=== PATIENT | male | born 1960 | race Caucasian/White ===

== ENCOUNTER 2018-01-10 12:01 | Emergency (ER) | payer SELFPAY ==
[2018-01-10 12:35] LABS: Absolute Lymphocytes (CBC) 2.5 K/uL (0.7-4.9); Absolute Monocytes 0.5 K/uL (0.1-1.3); Absolute Neutrophil 4.9 K/uL (1.8-8.0); Eosinophils % 2.4 % (0-4.4); Hematocrit 42.1 % (39.6-49.0); MCH 31.6 pg (27.0-35.0); MCV 96.6 fL (80-100); MPV 8.8 fL (7.6-11.3); Monocytes % 6.4 % (3.3-12.3); RBC Red Blood Cell Count 4.36 M/uL (4.33-5.43)
[2018-01-10] MEDS ORDERED: ONDANSETRON 4 MG/2 ML VIAL ONE (12:40)
[2018-01-10] MEDS ORDERED: MORPHINE 4 MG/ML SYR ONE ×2 (12:40→13:00)
[2018-01-10 12:43] LABS: Protime INR 1.07
[2018-01-10 12:45] LABS: Potassium 4.9 mEq/L (3.6-5.0)
[2018-01-10] MEDS ORDERED: LABETALOL 20 MG/4ML SYRINGE IV ONE (13:00)
--- NOTE | 2018-01-10 13:41 | RAD REPORT ---
EXAM DESCRIPTION: VAS - Lower Extremity Artery Uni Ltd - 01/10/2018 1:30 pm CLINICAL HISTORY: Right leg pain. COMPARISON: None. FINDINGS: The entire right lower extremity arterial system from DIGITAL RESEARCH ANALYST to DPA demonstrates monophasic f low with extremely low amplitude and very low velocities. This likely indicates a significant inflow stenosis/ lesion. CT angiogram would be recommended for followup assessment.
--- NOTE | 2018-01-10 14:08 | RAD REPORT ---
EXAM DESCRIPTION: CT - Angio Aorta For Dissection - 01/10/2018 1:42 pm CLINICAL HISTORY: Right leg pain and swelling. History of aortic endograft. COMPARISON: 12/14/2017 TECHNIQUE: CT angiography of the aorta was performed with volume rendering. All CT scans are performed using dose optimization technique as appropriate and may include automated exposure control or mA/KV adjustment according to patient size. FINDINGS: A left aortic arch is present with normal branching pattern of the great vessels.Thoracic aorta is normal in size without dissection or aneurysm. The celiac axis, SMA and renal arteries are widely patent. No evidence of pulmonary embolism. Abdominal aortic endograft has been placed since the prior CT. Endograft begins just distal to the re nal arteries. There is thrombosis noted involving the iliac portion of the endograft, with the right common iliac leg of the graft completely occluded. The left common iliac leg of the graft proximally shows near complete occlusion with a string sign present. The length of the thrombus at this location is 12 mm. Flow is seen in both external iliac arteries. The right-sided external iliac artery flow i s likely supplied via collateralization from the patent right internal iliac artery. There is mild at herosclerotic change seen in the both common femoral arteries with plaquing present bilaterally. The lungs are mildly emphysematous but clear.No aggressive solid organ finding. No bowel obstruction, free fluid or abscess.No pathologic enlarged lymphadenopathy identified. Lumbosacral degenerative changes are present. 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 Findings were discussed Dr. Hodge in the ER 2 p.m. 01/10/2018 by telephone.
--- NOTE | 2018-01-10 14:35 | EDPHYS ---
Physician Documentation [facility] Name: Jose Ramon Boston Jr Age: 57 yrs Sex: Male : 1960 Arrival Date: 01/10/2018 Time: 12:02 Bed 7 Private MD: ED Physician Bobo Hodge HPI: 01/10 14:30 This 57 yrs old Male presents to ER via EMS with complaints of Pulseless rn Extremity, Back Pain. 14:30 The patient presents with pain that is acute. The symptoms are located in the low back. rn Onset: The symptoms/episode began/occurred just prior to arrival. Modifying factors: The patient symptoms are alleviated by nothing, the patient symptoms are aggravated by any movement. The patient has not experienced similar symptoms in the past. Reports sudden onset RLE numbness and back pain, no trauma, states can't feel right leg and leg gave out. No abd pain. States compliant with effient. . Historical: - Allergies: 12:11 No Known Allergies; ph - PMHx: 12:11 Hypertension; aortic aneurysm; ph - PSHx: 12:11 aortic graft; ph - Immunization history:: Adult Immunizations unknown. - Social history:: Smoking status: Patient/guardian denies using tobacco. - Family history:: not pertinent. - Hospitalizations: : No recent hospitalization is reported. ROS: 14:30 Constitutional: Negative for fever, chills, and weight loss, Eyes: Negative for injury, rn pain, redness, and discharge, Neck: Negative for injury, pain, and swelling, Cardiovascular: Negative for chest pain, palpitations, and edema, Respiratory: Negative for shortness of breath, cough, wheezing, and pleuritic chest pain, Abdomen/GI: Negative for abdominal pain, nausea, vomiting, diarrhea, and constipation, Back: + pain MS/Extremity: Negative for injury and deformity, Skin: Negative for injury, rash, and discoloration, Neuro: + tingling of RLE Exam: 14:30 Constitutional: This is a well developed, well nourished patient who is awake, alert, rn appears uncomfortable Head/Face: Normocephalic, atraumatic. Eyes: Pupils equal round and reactive to light, extra-ocular motions intact. Lids and lashes normal. Conjunctiva and sclera are non-icteric and not injected. Cornea within normal limits. Periorbital areas with no swelling, redness, or edema. Cardiovascular: Regular rate and rhythm with a normal S1 and S2. No gallops, murmurs, or rubs. Normal PMI, no JVD. No pulse deficits. Respiratory: Lungs have equal breath sounds bilaterally, clear to auscultation and percussion. No rales, rhonchi or wheezes noted. No increased work of breathing, no retractions or nasal flaring. Abdomen/GI: Soft, non-tender, with normal bowel sounds. No distension or tympany. No guarding or rebound. No evidence of tenderness throughout. MS/ Extremity: No palpable pulses in either lower ext. Full, normal range of motion. Equal circumference. Neuro: Awake and alert, GCS 15, oriented to person, place, time, and situation. Cranial nerves II-XII grossly intact. Motor strength 5/5 in all extremities. Decreased sensation to soft touch RLE. Vital Signs: 12:06 BP 172 / 104; Pulse 73; Resp 22; Pulse Ox 100% on R/A; Weight 63.5 kg; Height 5 ft. 6 ph in. (167.64 cm); Pain 10/10; 12:45 BP 192 / 102; Pulse 68; Resp 16; Pulse Ox 99% on R/A; ph 13:28 BP 176 / 114; Pulse 66; Resp 16; Pulse Ox 98% on R/A; ph 14:19 BP 162 / 84; Pulse 80; Resp 16; Temp 97.8(TE); Pulse Ox 98% on R/A; ph 15:19 BP 151 / 83; Pulse 83; Resp 16; Temp 97.9; Pulse Ox 99% on R/A; ph 16:30 BP 158 / 78; Pulse 81; Resp 16; Temp 97.9; Pulse Ox 100% on R/A; ph 12:06 Body Mass Index 22.60 (63.50 kg, 167.64 cm) ph MDM: 12:02 Patient medically screened. rn 14:30 Differential diagnosis: aortic aneurysm, graft failure, occlusion of graft. Data rn reviewed: vital signs, nurses notes, lab test result(s), radiologic studies, CT scan, doppler, and as a result, I will admit patient. Counseling: I had a detailed discussion with the patient and/or guardian regarding: the historical points, exam findings, and any diagnostic results supporting the discharge/admit diagnosis, lab results, radiology results, the need to transfer to another facility, for higher level of care, [facility] does not immediately have the required specialist. ED course: Consulted with Dr. Mccullough at [facility], accepts patient for transfer to ICU on heparin drip for occlusion of aortic endograft. . 01/10 12:04 Order name: CBC with Diff; Complete Time: 12:51 rn 01/10 12:04 Order name: Basic Metabolic Panel; Complete Time: 12:51 rn 01/10 12:04 Order name: Protime (+inr); Complete Time: 12:51 rn 01/10 12:04 Order name: Ptt, Activated; Complete Time: 12:51 rn 01/10 12:04 Order name: US Lower Extremity (Artery Uni Ltd); Complete Time: 14:18 rn 01/10 12:04 Order name: CT Aorta for Dissection; Complete Time: 14:18 rn 01/10 12:04 Order name: IV Start; Complete Time: 12:22 rn Administered Medications: 12:26 Drug: Zofran 4 mg Route: IVP; Site: left antecubital; ph 13:30 Follow up: Response: No adverse reaction ph 12:27 Drug: morphine 4 mg Route: IVP; Site: left antecubital; ph 13:00 Follow up: Response: No adverse reaction ph 12:48 Drug: Labetalol 10 mg Route: IVP; Infused Over: 2 mins; Site: left antecubital; ph 13:30 Follow up: Response: No adverse reaction; Blood pressure is lowered ph 12:48 Drug: morphine 4 mg Route: IVP; Site: left antecubital; ph 16:35 Follow up: Response: No adverse reaction; Pain is decreased ph 14:45 Drug: Heparin (DVT/PE- Bolus per protocol) - HEParin 80 units/kg {Co-Signature: la1 ph (Tate Torres RN).} Route: IVP; Site: left antecubital; 16:35 Follow up: Response: No adverse reaction ph 15:09 Drug: Heparin (DVT/PE Drip) 18 units/kg/hr - (HEParin 12898 units, D5W 500 ml) ph {Co-Signature: la1 (Tate Torres RN).} Route: IV; Rate: 1 calculated rate; Site: left antecubital; 16:35 Follow up: IV Status: Infusion continued upon transfer ph Disposition: 01/10/18 14:35 Transfer ordered to [facility]. Diagnosis are Aortic graft occlusion, Paresthesia of skin. - Reason for transfer: Higher level of care. - Accepting physician is Dr. Mccullough. - Condition is Stable. - Problem is new. - Symptoms have improved. Signatures: Dispatcher [employer] EDBobo Aviles MD MD rn [facility] CenterYamileth cabrera RN RN Tate Torres RN RN la1 Tegan Mcarthur RN RN Tate Torres RN la1
--- NOTE | 2018-01-10 14:35 | ER ---
Nurse's Notes [facility] Name: Jose Ramon Boston Jr Age: 57 yrs Sex: Male : 1960 Arrival Date: 01/10/2018 Time: 12:02 Bed 7 Private MD: Diagnosis: Aortic graft occlusion;Paresthesia of skin Presentation: 01/10 12:03 Presenting complaint: EMS states: Pt fell at work after experiencing pain and numbness ph in R leg, unable to bear weight on R leg, had aortic graft sx on December 16, c/o pain in R femoral area and lower back. Transition of care: patient was not received from another setting of care. Onset of symptoms was January 10, 2018. Care prior to arrival: None. 12:03 Method Of Arrival: EMS: [facility] ph 12:03 Acuity: LUKE 2 ph Historical: - Allergies: 12:11 No Known Allergies; ph - PMHx: 12:11 Hypertension; aortic aneurysm; ph - PSHx: 12:11 aortic graft; ph - Immunization history:: Adult Immunizations unknown. - Social history:: Smoking status: Patient/guardian denies using tobacco. - Family history:: not pertinent. - Hospitalizations: : No recent hospitalization is reported. Screenin:12 Abuse screen: Denies threats or abuse. Denies injuries from another. Nutritional ph screening: No deficits noted. Tuberculosis screening: No symptoms or risk factors identified. Fall Risk Fall in past 12 months (25 points). No secondary diagnosis (0 pts). IV access (20 points). Ambulatory Aid- None/Bed Rest/Nurse Assist (0 pts). Gait- Weak (10 pts.). Mental Status- Oriented to own ability (0 pts). Total Caceres Fall Scale indicates High Risk Score (45 or more points). Fall prevention measures have been instituted. Side Rails Up X 2 Placed Close to Nursing Station Frequent Obs/Assessments Occuring As available patient and family educated on Fall Prevention Program and Strategies. Assessment: 12:00 Reassessment: ERP at bedside, pt cleared from backboard, board and c-collar removed, ph unable to locate pat pedal pulses w/ Doppler, pat feet pale in appearance and cool to touch. 12:14 General: Appears in no apparent distress. uncomfortable, Behavior is cooperative, ph appropriate for age, Denies fever, feeling ill. Pain: Complains of pain in medial aspect of right thigh and low back Pain currently is 10 out of 10 on a pain scale. Neuro: Level of Consciousness is awake, alert, obeys commands, Oriented to person, place, time, situation, Moves all extremities. Full function Facial symmetry appears normal, Intact Reports numbness weakness in right leg. Cardiovascular: Denies chest pain, shortness of breath, Capillary refill is > 3 seconds in bilateral toes Pulses are absent in right dorsalis pedis artery and left dorsalis pedis artery. Respiratory: Airway is patent Respiratory effort is even, unlabored, Respiratory pattern is regular, symmetrical. GI: No signs and/or symptoms were reported involving the gastrointestinal system. Derm: Skin is healthy with good turgor, Skin is clammy, Skin is pale. Musculoskeletal: Range of motion: intact in all extremities. 13:22 Reassessment: Patient appears in no apparent distress at this time. Patient and/or ph family updated on plan of care and expected duration. Pain level reassessed. Patient is alert, oriented x 3, equal unlabored respirations, skin warm/dry/pink. Pt resting quietly, lying on R side, states, " My back feels better as long as I lay like this. It seems like when I move to lay on back is when I get the numbness down my leg.". 14:18 Reassessment: Patient appears in no apparent distress at this time. Patient and/or ph family updated on plan of care and expected duration. Pain level reassessed. Patient is alert, oriented x 3, equal unlabored respirations, skin warm/dry/pink. Pt resting quietly, awaiting transfer. 15:53 Reassessment: Patient appears in no apparent distress at this time. Patient and/or ph family updated on plan of care and expected duration. Pain level reassessed. Patient is alert, oriented x 3, equal unlabored respirations, skin warm/dry/pink. Pt resting quietly at this time, report called to GARCIA Kilgore at [facility], awaiting EMS for transport. 16:35 Reassessment: Patient appears in no apparent distress at this time. Patient and/or ph family updated on plan of care and expected duration. Pain level reassessed. Patient is alert, oriented x 3, equal unlabored respirations, skin warm/dry/pink. [facility] at bedside, pt transferred to [facility]. Vital Signs: 12:06 BP 172 / 104; Pulse 73; Resp 22; Pulse Ox 100% on R/A; Weight 63.5 kg; Height 5 ft. 6 ph in. (167.64 cm); Pain 10/10; 12:45 BP 192 / 102; Pulse 68; Resp 16; Pulse Ox 99% on R/A; ph 13:28 BP 176 / 114; Pulse 66; Resp 16; Pulse Ox 98% on R/A; ph 14:19 BP 162 / 84; Pulse 80; Resp 16; Temp 97.8(TE); Pulse Ox 98% on R/A; ph 15:19 BP 151 / 83; Pulse 83; Resp 16; Temp 97.9; Pulse Ox 99% on R/A; ph 16:30 BP 158 / 78; Pulse 81; Resp 16; Temp 97.9; Pulse Ox 100% on R/A; ph 12:06 Body Mass Index 22.60 (63.50 kg, 167.64 cm) ph ED Course: 12:02 Patient arrived in ED. ph 12:02 Bobo Hodge MD is Attending Physician. rn 12:06 Triage completed. ph 12:07 Arm band placed on. ph 12:12 Patient has correct armband on for positive identification. Placed in gown. Bed in low ph position. Call light in reach. Side rails up X 1. case monitor on. Pulse ox on. NIBP on. Notified Nurse Practitioner and/or Physician Manager [employer] of. Warm blanket given. 12:22 No provider procedures requiring assistance completed. Inserted saline lock: 20 gauge la1 in left antecubital area, using aseptic technique. Blood collected. 12:39 Tegan Mcarthur, RN is Primary Nurse. ph 12:45 Ultrasound completed. Patient tolerated well. sg3 13:30 US Lower Extremity (Artery Uni Ltd) In Process Unspecified. EDMS 13:42 CT Aorta for Dissection In Process Unspecified. EDMS 16:35 Patient transferred, IV remains in place. ph Administered Medications: 12:26 Drug: Zofran 4 mg Route: IVP; Site: left antecubital; ph 13:30 Follow up: Response: No adverse reaction ph 12:27 Drug: morphine 4 mg Route: IVP; Site: left antecubital; ph 13:00 Follow up: Response: No adverse reaction ph 12:48 Drug: Labetalol 10 mg Route: IVP; Infused Over: 2 mins; Site: left antecubital; ph 13:30 Follow up: Response: No adverse reaction; Blood pressure is lowered ph 12:48 Drug: morphine 4 mg Route: IVP; Site: left antecubital; ph 16:35 Follow up: Response: No adverse reaction; Pain is decreased ph 14:45 Drug: Heparin (DVT/PE- Bolus per protocol) - HEParin 80 units/kg {Co-Signature: livia ph (Tate Torres RN).} Route: IVP; Site: left antecubital; 16:35 Follow up: Response: No adverse reaction ph 15:09 Drug: Heparin (DVT/PE Drip) 18 units/kg/hr - (HEParin 51829 units, D5W 500 ml) ph {Co-Signature: livia (Tate Torres RN).} Route: IV; Rate: 1 calculated rate; Site: left antecubital; 16:35 Follow up: IV Status: Infusion continued upon transfer ph Outcome: 14:35 ER care complete, transfer ordered by . rn 16:35 Patient left the ED. ss 16:35 Transferred by ground EMS to [facility], Transfer form ph completed. X-rays sent w/ patient. 16:35 critical 16:35 Instructed on the need for admit. Signatures: Dispatcher [employer] Bobo Alvarez MD MD rn Smirch, Shelby, RN RN ss Attema, Lee, RN RN la1 Hall, Patricia, RN RN Guillermo Cisnerosholy [facility] Tate bhakta
[2018-01-10] MEDS ORDERED: HEPARIN 5000 UNIT/ML 1 ML VIAL ONE (14:53)
[2018-01-10] MEDS ORDERED: HEPARIN/D5W 25,000 UNIT/500 ML BAG IV ONE (14:54)
--- NOTE | 2018-01-11 10:24 | EKG ---
Test Date: 2018-01-10 Test Time: 12:19:21 Watch Crystal Molder: MEASUREMENT RESULTS: Intervals: Rate: 68 MI: 130 QRSD: 80 QT: 408 QTc: 433 [place]: P: 42 MI: 130 QRS: 63 T: 67 INTERPRETIVE STATEMENTS: Normal sinus rhythm Possible Left atrial enlargement Borderline ECG Compared to ECG 12/14/2017 08:50:25 ST (T wave) deviation no longer present Electronically Signed On 01-11-18 10:23:34 CDT by Arash Stovall
== END 2018-01-10 16:35 | disposition short-term general hospital (02) ==
LOC: ER 12:01
DX: T82.857A Stenosis of other cardiac prosthetic devices, implants and grafts, initial encounter (principal); I10 Essential (primary) hypertension
CPT/HCPCS: 36415; 71275; 74175; 80048; 85025; 85610; 85730; 93005; 93926; 96365; 96375; 99285; J1644; J2405; Q9967

== ENCOUNTER 2018-03-09 16:22 | Emergency (ER) | payer SELFPAY ==
[2018-03-09 17:48] LABS: Absolute Lymphocytes (CBC) 0.8 K/uL (0.7-4.9); Absolute Monocytes 1.3 K/uL (0.1-1.3); Absolute Neutrophil 9.2 K/uL (1.8-8.0); Basophils % 0.2 % (0-1.3); Eosinophils % 0.1 % (0-4.4); Hematocrit 37.2 % (39.6-49.0); Lymphocytes % 7.1 % (15.3-44.8); MCH 32.1 pg (27.0-35.0); MCV 95.6 fL (80-100); MPV 9.1 fL (7.6-11.3); Monocytes % 11.2 % (3.3-12.3); RBC Red Blood Cell Count 3.89 M/uL (4.33-5.43)
[2018-03-09 17:59] LABS: Potassium 3.3 mEq/L (3.6-5.0)
[2018-03-09 18:05] LABS: Albumin 3.8 g/dL (3.2-5.5); Bilirubin Direct 0.2 mg/dL (0-0.2); Bilirubin Total 1.1 mg/dL (0.3-1.2); Protein, Total 7.9 g/dL (6.0-8.3)
[2018-03-09] MEDS ORDERED: CIPROFLOXACIN 400mg IV 400 MG/200 ML BAG IV ONE (18:08)
[2018-03-09] MEDS ORDERED: METRONIDAZOLE 500mg IVPB 500 MG/100 ML BAG IV ONE (18:08)
[2018-03-09] MEDS ORDERED: ONDANSETRON 4 MG/2 ML VIAL ONE (18:08)
[2018-03-09] MEDS ORDERED: FENTANYL CITR 100 MCG/2 ML ONE (18:08)
[2018-03-09] MEDS ORDERED: NA CHLORIDE 0.9% 1,000 ML ONE ×2 (18:09→22:00)
--- NOTE | 2018-03-09 18:29 | RAD REPORT ---
EXAM DESCRIPTION: RAD - Chest Single View - 03/09/2018 6:16 pm CLINICAL HISTORY: Chest pain. COMPARISON: 12/14/2017 FINDINGS: Portable technique limits examination quality. The lungs are grossly clear. The heart is normal in size. No displaced fractures. IMPRESSION: No acute intrathoracic process suspected.
--- NOTE | 2018-03-09 19:28 | ER ---
Nurse's Notes [facility] Name: Jose Ramon Boston Jr Age: 57 yrs Sex: Male : 1960 Arrival Date: 03/09/2018 Time: 16:25 Bed 27 Private MD: None, None Diagnosis: Abdominal tenderness-infected endograft;Fever, unspecified;Hypokalemia Presentation: 03/09 16:59 Presenting complaint: Patient states: burning lower abd pain that began last night. Pt aa5 states "It feels like when I had my aneurysm". Pt states "I've had chills and fever for about 3 days now". Transition of care: patient was not received from another setting of care. Onset of symptoms was March 2018. Risk Assessment: Do you want to hurt yourself or someone else? Patient reports no desire to harm self or others. Initial Sepsis Screen: Does the patient meet any 2 criteria? No. Patient's initial sepsis screen is negative. Does the patient have a suspected source of infection? No. Patient's initial sepsis screen is negative. Care prior to arrival: None. 16:59 Method Of Arrival: Ambulatory aa5 16:59 Acuity: LUKE 2 aa5 Historical: - Allergies: 17:00 No Known Allergies; aa5 - PMHx: 17:00 aortic aneurysm; Hypertension; aa5 - PSHx: 17:00 aortic graft; AAA repair; aa5 - Immunization history:: Adult Immunizations unknown. - Social history:: Smoking status: Patient uses tobacco products, smokes one-half pack cigarettes per day. - Ebola Screening: : No symptoms or risks identified at this time. - Family history:: not pertinent. Screenin:50 Abuse screen: Denies threats or abuse. Nutritional screening: No deficits noted. tl3 Tuberculosis screening: No symptoms or risk factors identified. Fall Risk None identified. Assessment: 17:50 General: Appears uncomfortable, slender, well groomed, well developed, well nourished, tl3 Behavior is calm, cooperative, appropriate for age. General: Reports chills for 12-24 hours, fever for 12-24 hours, reports lower abdominal pain, had recent AAA and repair in December 2017. Pain: Complains of pain in left lower quadrant and right lower quadrant Pain currently is 8 out of 10 on a pain scale. Neuro: Level of Consciousness is awake, alert, obeys commands, Oriented to person, place, time, situation, Appropriate for age. Cardiovascular: No deficits noted. Heart tones S1 S2 present Patient's skin is warm and dry. Respiratory: Airway is patent Respiratory effort is even, unlabored, Respiratory pattern is regular, symmetrical, Breath sounds are clear bilaterally. GI: Bowel sounds present X 4 quads. Abdomen is tender to palpation. : No deficits noted. No signs and/or symptoms were reported regarding the genitourinary system. EENT: No deficits noted. No signs and/or symptoms were reported regarding the EENT system. Derm: No deficits noted. No signs and/or symptoms reported regarding the dermatologic system. Musculoskeletal: No deficits noted. No signs and/or symptoms reported regarding the musculoskeletal system. 19:00 Reassessment: Patient appears in no apparent distress at this time. No changes from tl3 previously documented assessment. Patient and/or family updated on plan of care and expected duration. Pain level reassessed. Patient is alert, oriented x 3, equal unlabored respirations, skin warm/dry/pink. 20:59 Reassessment: Patient appears in no apparent distress at this time. No changes from tl3 previously documented assessment. Patient and/or family updated on plan of care and expected duration. Pain level reassessed. Patient is alert, oriented x 3, equal unlabored respirations, skin warm/dry/pink. 22:31 Reassessment: [facility] in [place] called and report given to GARCIA Sanchez, transfer tl3 paper completed and signed by pt. 22:33 Reassessment: Patient appears in no apparent distress at this time. No changes from tl3 previously documented assessment. Patient and/or family updated on plan of care and expected duration. Pain level reassessed. Patient is alert, oriented x 3, equal unlabored respirations, skin warm/dry/pink. 22:57 Reassessment: [facility] here for transport to [facility]. tl3 Vital Signs: 17:01 BP 140 / 107; Pulse 117; Resp 18 S; Temp 99.7(O); Pulse Ox 97% on R/A; Weight 68.04 kg aa5 (R); Height 5 ft. 6 in. (167.64 cm) (R); Pain 7/10; 17:50 BP 151 / 92; Pulse 93; Resp 18; Pulse Ox 95% ; tl3 19:00 BP 162 / 97; Pulse 87; Resp 18; Pulse Ox 98% ; tl3 20:59 BP 156 / 103; Pulse 84; Resp 16; Pulse Ox 97% ; tl3 22:33 BP 192 / 97; Pulse 87; Resp 18; Temp 100.4(O); Pulse Ox 97% ; tl3 17:01 Body Mass Index 24.21 (68.04 kg, 167.64 cm) aa5 ED Course: 16:25 Patient arrived in ED. mr 16:25 None, None is Private Physician. mr 17:00 Triage completed. aa5 17:00 Arm band placed on. aa5 17:21 Radiology exam delayed due to lab results not completed at this time. (BUN/Creatinine). cw1 17:23 Sloan Raphael MD is Attending Physician. [facility] 17:33 Sara Elizondo, GARCIA is Primary Nurse. tl3 17:50 Initial lab(s) drawn, by ne, sent to lab. First set of blood cultures drawn by me, tl3 Second set of blood cultures drawn by me. 17:50 No provider procedures requiring assistance completed. tl3 17:53 Patient has correct armband on for positive identification. Placed in gown. Bed in low tl3 position. Call light in reach. Side rails up X2. pickler helper on. Pulse ox on. NIBP on. 17:53 Inserted saline lock: 20 gauge in right wrist, using aseptic technique. Blood collected.tl3 17:57 Radiology exam delayed due to lab results not completed at this time. (BUN/Creatinine). cw1 18:03 EKG done, by ED staff, reviewed by Sloan Raphael MD. em1 18:17 XRAY Chest (1 view) In Process Unspecified. EDMS 18:[address] via stretcher. nj 18:53 CT completed. Patient tolerated procedure well. Patient moved back from CT. nj 18:53 CT Aorta for Dissection In Process Unspecified. EDMS 20:03 Ultrasound completed. Patient tolerated well. cy 20:04 US Extremity Venous W Compression Reji In Process Unspecified. EDMS 22:57 Patient transferred, IV remains in place. tl3 Administered Medications: 18:26 Drug: fentaNYL (PF) 25 mcg Route: IVP; Infused Over: 2 mins; Site: right wrist; tl3 20:56 Follow up: Response: No adverse reaction tl3 18:26 Drug: Zofran 4 mg Route: IVP; Infused Over: 2 mins; Site: right wrist; tl3 20:56 Follow up: Response: No adverse reaction tl3 18:27 Drug: Flagyl 500 mg Route: PO; tl3 20:56 Follow up: Response: No adverse reaction tl3 18:28 Drug: NS 0.9% 500 ml Route: IV; Rate: bolus; Site: right wrist; tl3 20:57 Follow up: IV Status: Completed infusion; IV Intake: 500ml tl3 18:28 Drug: Cipro 400 mg Volume: 200 ml; Route: IVPB; Infused Over: 60 mins; Site: right tl3 wrist; 20:56 Follow up: IV Status: Completed infusion; IV Intake: 200ml tl3 20:55 Drug: NS 0.9% 1000 ml Route: IV; Rate: 125 ml/hr; Site: right wrist; Delivery: Primary tl3 tubing; 21:57 Follow up: IV Status: Completed infusion; IV Intake: 1000ml tl3 22:14 Drug: NS 0.9% 1000 ml Route: IV; Rate: 125 ml/hr; Site: right forearm; tl3 22:56 Follow up: IV Status: Completed infusion; IV Intake: 250ml tl3 22:14 Drug: fentaNYL (PF) 25 mcg Route: IVP; Infused Over: 3 mins; Site: right forearm; tl3 23:00 Follow up: Response: No adverse reaction; Pain is decreased tl3 22:56 Drug: Tylenol 1000 mg Route: PO; tl3 22:56 Follow up: Response: No adverse reaction tl3 22:58 Follow up: Response: Medication administered at discharge. tl3 Intake: 20:56 IV: 200ml; Total: 200ml. tl3 20:57 IV: 500ml; Total: 700ml. tl3 21:57 IV: 1000ml; Total: 1700ml. tl3 22:56 IV: 250ml; Total: 1950ml. tl3 Outcome: 19:27 ER care complete, transfer ordered by MD. kulkarni 22:57 Transferred by ground EMS to [facility]. tl3 22:57 Condition: stable 22:57 Instructed on the need for transfer. 22:59 Patient left the ED. tl3 Signatures: Dispatcher [employer] EDMS Sloan Raphael MD MD cha Rivera, Maria mr Román, Erasmo em1 Sandy Roberts, RN RN aa5 Farrah, Yael cw1 Nader Norton Chheannith cy Lowrey, Tammy, GARCIA RN tl3
--- NOTE | 2018-03-09 19:28 | EDPHYS ---
Physician Documentation [facility] Name: Jose Ramon Boston Jr Age: 57 yrs Sex: Male : 1960 Arrival Date: 03/09/2018 Time: 16:25 Bed 27 Private MD: None, None ED Physician Sloan Raphael HPI: 03/09 17:56 This 57 yrs old Male presents to ER via Ambulatory with complaints of Fever, shad Abdominal Pain. 17:56 The patient reports fever, that was measured at 100 degrees Fahrenheit. Onset: The shad symptoms/episode began/occurred 2 day(s) ago. Modifying factors: there are no obvious modifying factors. Associated signs and symptoms: Pertinent positives: abdominal pain, chills, None. Severity of symptoms: At their worst the symptoms were mild. The patient has not experienced similar symptoms in the past. Historical: - Allergies: 17:00 No Known Allergies; aa5 - PMHx: 17:00 aortic aneurysm; Hypertension; aa5 - PSHx: 17:00 aortic graft; AAA repair; aa5 - Immunization history:: Adult Immunizations unknown. - Social history:: Smoking status: Patient uses tobacco products, smokes one-half pack cigarettes per day. - Ebola Screening: : No symptoms or risks identified at this time. - Family history:: not pertinent. ROS: 17:56 Constitutional: Negative for fever, chills, and weight loss, Eyes: Negative for injury, shad pain, redness, and discharge, ENT: Negative for injury, pain, and discharge, Neck: Negative for injury, pain, and swelling, Cardiovascular: Negative for chest pain, palpitations, and edema, Respiratory: Negative for shortness of breath, cough, wheezing, and pleuritic chest pain, Back: Negative for injury and pain, : Negative for injury, bleeding, discharge, and swelling, MS/Extremity: Negative for injury and deformity, Skin: Negative for injury, rash, and discoloration, Neuro: Negative for headache, weakness, numbness, tingling, and seizure, Psych: Negative for depression, anxiety, suicide ideation, homicidal ideation, and hallucinations, Allergy/Immunology: Negative for hives, rash, and allergies, Endocrine: Negative for neck swelling, polydipsia, polyuria, polyphagia, and marked weight changes, Hematologic/Lymphatic: Negative for swollen nodes, abnormal bleeding, and unusual bruising. 17:56 Abdomen/GI: Positive for abdominal pain, of the right lower quadrant and left lower quadrant. Exam: 17:56 Constitutional: This is a well developed, well nourished patient who is awake, alert, shad and in no acute distress. Head/Face: Normocephalic, atraumatic. Eyes: Pupils equal round and reactive to light, extra-ocular motions intact. Lids and lashes normal. Conjunctiva and sclera are non-icteric and not injected. Cornea within normal limits. Periorbital areas with no swelling, redness, or edema. ENT: Nares patent. No nasal discharge, no septal abnormalities noted. Tympanic membranes are normal and external auditory canals are clear. Oropharynx with no redness, swelling, or masses, exudates, or evidence of obstruction, uvula midline. Mucous membranes moist. Neck: Trachea midline, no thyromegaly or masses palpated, and no cervical lymphadenopathy. Supple, full range of motion without nuchal rigidity, or vertebral point tenderness. No Meningismus. Chest/axilla: Normal chest wall appearance and motion. Nontender with no deformity. No lesions are appreciated. Respiratory: Lungs have equal breath sounds bilaterally, clear to auscultation and percussion. No rales, rhonchi or wheezes noted. No increased work of breathing, no retractions or nasal flaring. Back: No spinal tenderness. No costovertebral tenderness. Full range of motion. Male : Normal genitalia with no discharge or lesions. Skin: Warm, dry with normal turgor. Normal color with no rashes, no lesions, and no evidence of cellulitis. MS/ Extremity: Pulses equal, no cyanosis. Neurovascular intact. Full, normal range of motion. Neuro: Awake and alert, GCS 15, oriented to person, place, time, and situation. Cranial nerves II-XII grossly intact. Motor strength 5/5 in all extremities. Sensory grossly intact. Cerebellar exam normal. Normal gait. Psych: Awake, alert, with orientation to person, place and time. Behavior, mood, and affect are within normal limits. 17:56 Cardiovascular: Rate: tachycardic, Rhythm: regular, Pulses: Pulses are 4+ in bilateral radial, brachial, femoral, popliteal, posterior tibial and and dorsalis pedis arteries.. Heart sounds: normal, Edema: is not appreciated, JVD: is not appreciated. Vital Signs: 17:01 BP 140 / 107; Pulse 117; Resp 18 S; Temp 99.7(O); Pulse Ox 97% on R/A; Weight 68.04 kg aa5 (R); Height 5 ft. 6 in. (167.64 cm) (R); Pain 7/10; 17:50 BP 151 / 92; Pulse 93; Resp 18; Pulse Ox 95% ; tl3 19:00 BP 162 / 97; Pulse 87; Resp 18; Pulse Ox 98% ; tl3 20:59 BP 156 / 103; Pulse 84; Resp 16; Pulse Ox 97% ; tl3 22:33 BP 192 / 97; Pulse 87; Resp 18; Temp 100.4(O); Pulse Ox 97% ; tl3 17:01 Body Mass Index 24.21 (68.04 kg, 167.64 cm) aa5 MDM: 17:23 Patient medically screened. [facility] 17:59 Data reviewed: vital signs, nurses notes, lab test result(s), EKG, radiologic studies, [facility] CT scan, plain films. 03/09 17:12 Order name: Amylase, Serum; Complete Time: 18:20 [facility] 03/09 17:12 Order name: Basic Metabolic Panel; Complete Time: 18:20 [facility] 03/09 17:12 Order name: CBC with Diff; Complete Time: 18:20 [facility] 03/09 17:12 Order name: Creatinine for Radiology; Complete Time: 18:20 [facility] 03/09 17:12 Order name: Hepatic Function; Complete Time: 18:20 [facility] 03/09 17:12 Order name: Lipase; Complete Time: 18:20 [facility] 03/09 17:12 Order name: Blood Culture Adult (2) [facility] 03/09 17:12 Order name: Procalcitonin; Complete Time: 19:13 [facility] 03/09 17:12 Order name: CT Aorta for Dissection [facility] 03/09 17:55 Order name: XRAY Chest (1 view); Complete Time: 19:13 [facility] 03/09 17:55 Order name: EKG; Complete Time: 17:56 [facility] 03/09 19:15 Order name: US Extremity Venous W Compression Reji [facility] 03/09 17:12 Order name: Labs collected and sent; Complete Time: 17:52 [facility] 03/09 17:12 Order name: Urine Dipstick-Ancillary (obtain specimen); Complete Time: 20:57 snw 03/09 17:55 Order name: Cardiac monitoring; Complete Time: 18:28 [facility] 03/09 17:55 Order name: EKG - Nurse/Tech; Complete Time: 18:03 [facility] 03/09 17:55 Order name: IV Saline Lock; Complete Time: 18:28 [facility] 03/09 17:55 Order name: O2 Per Protocol; Complete Time: 18:28 [facility] 03/09 17:55 Order name: O2 Sat Monitoring; Complete Time: 18:28 [facility] Administered Medications: 18:26 Drug: fentaNYL (PF) 25 mcg Route: IVP; Infused Over: 2 mins; Site: right wrist; tl3 20:56 Follow up: Response: No adverse reaction tl3 18:26 Drug: Zofran 4 mg Route: IVP; Infused Over: 2 mins; Site: right wrist; tl3 20:56 Follow up: Response: No adverse reaction tl3 18:27 Drug: Flagyl 500 mg Route: PO; tl3 20:56 Follow up: Response: No adverse reaction tl3 18:28 Drug: NS 0.9% 500 ml Route: IV; Rate: bolus; Site: right wrist; tl3 20:57 Follow up: IV Status: Completed infusion; IV Intake: 500ml tl3 18:28 Drug: Cipro 400 mg Volume: 200 ml; Route: IVPB; Infused Over: 60 mins; Site: right tl3 wrist; 20:56 Follow up: IV Status: Completed infusion; IV Intake: 200ml tl3 20:55 Drug: NS 0.9% 1000 ml Route: IV; Rate: 125 ml/hr; Site: right wrist; Delivery: Primary tl3 tubing; 21:57 Follow up: IV Status: Completed infusion; IV Intake: 1000ml tl3 22:14 Drug: NS 0.9% 1000 ml Route: IV; Rate: 125 ml/hr; Site: right forearm; tl3 22:56 Follow up: IV Status: Completed infusion; IV Intake: 250ml tl3 22:14 Drug: fentaNYL (PF) 25 mcg Route: IVP; Infused Over: 3 mins; Site: right forearm; tl3 23:00 Follow up: Response: No adverse reaction; Pain is decreased tl3 22:56 Drug: Tylenol 1000 mg Route: PO; tl3 22:56 Follow up: Response: No adverse reaction tl3 22:58 Follow up: Response: Medication administered at discharge. tl3 Disposition: 03/09/18 19:27 Transfer ordered to [facility]. Diagnosis are Abdominal tenderness - infected endograft, Fever, unspecified, Hypokalemia. - Reason for transfer: Higher level of care. - Accepting physician is to [facility]. - Condition is Fair. - Problem is new. - Symptoms are unchanged. Signatures: Dispatcher [employer] [facility] Sloan Raphael MD MD cha Therrien, Shelly, BOTTOM PRESSER-C BOTTOM PRESSER-Csnw Sandy Roberts, RN RN aa5 Sara Elizondo, RN RN tl3 Corrections: (The following items were deleted from the chart) 18:47 17:56 Abdomen Pelvis W Con+CT.RAD.BRZ ordered. [facility] 22:59 19:27 03/09/2018 19:27 Transfer ordered to [facility]. Diagnosis is Abdominal tl3 tenderness - infected endograft; Fever, unspecified; Hypokalemia. Reason for transfer: Higher level of care. Accepting physician is to [facility]. Condition is Fair. Problem is new. Symptoms are unchanged. shad
--- NOTE | 2018-03-09 19:52 | RAD REPORT ---
EXAM DESCRIPTION: CT - Angio Aorta For Dissection - 03/09/2018 6:53 pm CLINICAL HISTORY: Chest pain radiating to the back. COMPARISON: 01/10/2018, 12/14/2017 TECHNIQUE: CT angiography of the aorta was performed with volume rendering. All CT scans are performed using dose optimization technique as appropriate and may include automated exposure control or mA/KV adjustment according to patient size. FINDINGS: A left aortic arch is present with normal branching pattern of the great vessels.No acute aortic finding is seen such as aneurysm, penetrating ulcer or dissection. The celiac axis, SMA, DIMPLE and renal arteries are widely patent. No evidence of pulmonary embolism. 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 The graft appears patent. Since the prior study, it ap pears stents have been placed in both common iliac arteries. Moderate inflammatory changes present barbosa rrounding the aorta and common iliac arteries noted at the level of the graft material. Several promi nent lymph nodes are also present in this region. The lungs are clear. The liver demonstrates no focal mass or biliary dilatation.The spleen, pancreas, adrenal glands and k idneys are within normal limits for arterial phase imaging. No bowel obstruction, free fluid or abscess. No fracture or worrisome bone lesion seen. IMPRESSION: Inflammatory changes and multiple small lymph nodes are seen surrounding the infrarenal abdominal aorta and both common iliac arteries which is suspicious for graft infection.No graft throm bosis is identified. Findings were discussed with Dr. Raphael at 7 p.m. 03/09/2018 by telephone.
--- NOTE | 2018-03-09 20:08 | RAD REPORT ---
EXAM DESCRIPTION: VAS - Extrem Venous W Compress Reji - 03/09/2018 8:04 pm CLINICAL HISTORY: Bilateral leg edema and swelling. COMPARISON: None. TECHNIQUE: Real-time sonographic interrogation of the left and right lower extremity deep venous sys tems was performed. FINDINGS: Normal compressibility, flow augmentation, phasic flow and spontaneous flow is identified in both the left and right lower extremity deep venous systems. IMPRESSION: No sonographic evidence of left or right lower extremity deep venous thrombosis.
[2018-03-09] MEDS ORDERED: ACETAMINOPHEN 500 MG TAB ONE (22:39)
--- NOTE | 2018-03-10 13:45 | EKG ---
Test Date: 2018-03-09 Test Time: 17:59:38 Cleaner Touch Up Worker: JULISSA MEASUREMENT RESULTS: Intervals: Rate: 93 NE: 124 QRSD: 86 QT: 362 QTc: 450 Thompson: P: 34 NE: 124 QRS: 36 T: -3 INTERPRETIVE STATEMENTS: Normal sinus rhythm Possible Left atrial enlargement Left ventricular hypertrophy with repolarization abnormality Abnormal ECG Compared to ECG 01/10/2018 12:19:21 Left ventricular hypertrophy now present Early repolarization now present Electronically Signed On 03-10-18 13:41:53 CDT by Uziel Rene
== END 2018-03-09 22:59 | disposition short-term general hospital (02) ==
LOC: ER 16:22
DX: T82.7XXA Infection and inflammatory reaction due to other cardiac and vascular devices, implants and grafts, initial encounter (principal); E87.6 Hypokalemia; R10.819 Abdominal tenderness, unspecified site; I10 Essential (primary) hypertension; F17.210 Nicotine dependence, cigarettes, uncomplicated
CPT/HCPCS: 36415; 71045; 71275; 74175; 80048; 80076; 82150; 83690; 84145; 85025; 87040; 93005; 93970; 99285; J0744; J2405; J3010; J7030; Q9967

== ENCOUNTER 2019-03-07 13:38 | Inpatient (IN) | payer OTHER, SELFPAY ==
--- OUTSIDE RECORDS SUMMARY | 2019-03-07 13:40 | XMS REPORT ---
:1960 [facility] [address] [place] [address] [address] [place] [address] Care Team Providers Name Role Phone Unavailable Unavailable Unavailable Problems This patient has no known problems. Allergies, Adverse Reactions, Alerts This patient has no known allergies or adverse reactions. Medications This patient has no known medications.
[2019-03-07 14:55] LABS: Absolute Lymphocytes (CBC) 1.7 K/uL (0.7-4.9); Absolute Monocytes 0.7 K/uL (0.1-1.3); Absolute Neutrophil 6.8 K/uL (1.8-8.0); Basophils % 0.5 % (0-1.3); Eosinophils % 0.7 % (0-4.4); Hematocrit 44.4 % (39.6-49.0); Lymphocytes % 18.7 % (15.3-44.8); MPV 9.2 fL (7.6-11.3); RBC Red Blood Cell Count 4.68 M/uL (4.33-5.43)
[2019-03-07 15:05] LABS: ALT/SGPT 19 U/L (12-78); AST/SGOT 17 U/L (15-37); Albumin 3.8 g/dL (3.4-5.0); Alkaline Phosphatase 107 U/L (45-117); BUN Blood Urea Nitrogen 17 mg/dL (7-18); Bicarbonate 23 mmol/L (21-32); Bilirubin Direct < 0.1 mg/dL (0-0.2); Bilirubin Total 0.6 mg/dL (0.2-1.0); Glucose Level 107 mg/dL (74-106); Lipase 71 U/L (73-393); Potassium 3.9 mmol/L (3.5-5.1); Protein, Total 8.3 g/dL (6.4-8.2); Sodium Level 140 mmol/L (136-145)
--- NOTE | 2019-03-07 15:53 | RAD REPORT ---
EXAM DESCRIPTION: CT - Abdomen Pelvis W Contrast - 03/07/2019 3:11 pm CLINICAL HISTORY: Abdominal pain COMPARISON: March 2018 TECHNIQUE: Computed axial tomography of the abdomen pelvis was obtained. 100 cc Isovue-300 was admin istered intravenously. Oral contrast was not requested which limits evaluation of bowel. All CT scans are performed using dose optimization technique as appropriate and may include automated exposure control or mA/KV adjustment according to patient size. FINDINGS: Since the prior examination an arterial graft has been placed within the subcutaneous fat of the left lateral chest and abdomen. The graft courses within the subcutaneous fat of the pelvis an teriorly supplying the right and left common femoral arteries. 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 Left common iliac, left external and internal iliac arteries are occluded. Flow is visualized within the right and left internal iliac arteries. The liver, spleen, pancreas, adrenal and kidneys appear unremarkable. A ventral hernia contains dilated loop of small bowel within the mid abdomen. The bowel entering and exiting the hernia is narrowed. Fluid surrounds the herniated small bowel. An additional ventral hernia to the right of midline lies several centimeters inferior within the low er abdomen/upper pelvis containing nondilated bowel. Left inguinal hernia contains fat There is no evidence of diverticulitis IMPRESSION: Ventral hernia within the mid abdomen containing dilated small bowel compatible with an obstruction. Fluid surrounding the bowel may indicate strangulation. Placement of an arterial graft as described above. 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
--- NOTE | 2019-03-07 16:10 | ER ---
Nurse's Notes [facility] Name: Jose Ramon Boston Jr Age: 58 yrs Sex: Male : 1960 Arrival Date: 03/07/2019 Time: 13:40 Bed 13 Private MD: Diagnosis: Other and unspecified ventral hernia with obstruction, without gangrene Presentation: 03/07 13:49 Presenting complaint: Patient states: "MY HERNIA'S GONNA BLOW UP". Transition of care: bp patient was not received from another setting of care. Onset of symptoms is unknown. Risk Assessment: Do you want to hurt yourself or someone else? Patient reports no desire to harm self or others. Initial Sepsis Screen: Does the patient meet any 2 criteria? No. Patient's initial sepsis screen is negative. Does the patient have a suspected source of infection? No. Patient's initial sepsis screen is negative. Care prior to arrival: None. 13:49 Method Of Arrival: Ambulatory bp 13:49 Acuity: LUKE 3 bp Historical: - Allergies: 13:50 No Known Allergies; bp - Home Meds: 13:50 None [Active]; bp - PMHx: 13:50 aortic aneurysm; Hypertension; bp - PSHx: 13:50 AAA REPAIR; bp - Immunization history:: Adult Immunizations up to date. - Social history:: Smoking status: unknown. - Ebola Screening: : No symptoms or risks identified at this time. Screenin:10 Abuse screen: Denies threats or abuse. Nutritional screening: No deficits noted. rb1 Tuberculosis screening: No symptoms or risk factors identified. Fall Risk None identified. Assessment: 14:10 General: Appears uncomfortable, Behavior is calm, cooperative. Pain: Complains of pain rb1 in abdomen Pain currently is 10 out of 10 on a pain scale. Neuro: Level of Consciousness is awake, alert, obeys commands, Oriented to person, place, time, situation. Cardiovascular: Capillary refill < 3 seconds is brisk in bilateral fingers. Respiratory: Airway is patent Respiratory effort is even, unlabored, Respiratory pattern is regular, symmetrical. GI: No signs and/or symptoms were reported involving the gastrointestinal system. : No signs and/or symptoms were reported regarding the genitourinary system. Derm: Skin is pink, warm \\T\\ dry. 15:10 Reassessment: Pt is in CT. rb1 16:14 Reassessment: Dr. Shi is at bedside. rb1 16:20 Reassessment: Dr. Shi ordered to hold the Flagyl and Cipro until he speaks with Dr. avani France. 16:20 Reassessment: Patient appears in no apparent distress at this time. Patient and/or rb1 family updated on plan of care and expected duration. Pain level reassessed. Patient is alert, oriented x 3, equal unlabored respirations, skin warm/dry/pink. 16:32 Reassessment: Spoke to Dr. Shi via telephone and received order to obtain Blood rb1 Cultures (2) and then continue with the Cipro and Flagyl as ordered. 100% telephone read back. 17:20 Reassessment: Patient appears in no apparent distress at this time. No changes from rb1 previously documented assessment. Pt. is watching TV. 17:30 Reassessment: Tried to call report but GARCIA Sánchez was in another pt. room and needs to rb1 call me back. 17:55 Reassessment: Report given to GARCIA Sánchez. Information from the SBAR was given. All rb1 questions asked and answered. 18:03 Reassessment: Patient appears in no apparent distress at this time. Patient and/or rb1 family updated on plan of care and expected duration. Pain level reassessed. Patient is alert, oriented x 3, equal unlabored respirations, skin warm/dry/pink. Patient denies pain at this time. Vital Signs: 13:50 BP 146 / 98; Pulse 86; Resp 16; Temp 98.1; Pulse Ox 97% ; Weight 75.75 kg; Height 5 ft. bp 6 in. (167.64 cm); 14:52 BP 125 / 93; Pulse 78; Resp 18; Temp 98.1(O); Pulse Ox 95% on R/A; mh5 16:11 BP 166 / 97; Pulse 64; Resp 16; Temp 98.4(O); Pulse Ox 96% on R/A; mh5 17:21 BP 144 / 94; Pulse 76; Resp 18; Temp 98.6(O); Pulse Ox 96% on R/A; mh5 18:00 BP 146 / 92; Pulse 71; Resp 17; Temp 98.5(O); Pulse Ox 97% on R/A; Pain 0/10; rb1 13:50 Body Mass Index 26.95 (75.75 kg, 167.64 cm) bp ED Course: 13:40 Patient arrived in ED. tw3 13:50 Triage completed. bp 13:50 Arm band placed on. bp 14:05 Sloan Raphael MD is Attending Physician. shad 14:05 SamirIvanna laureano, [employer] is PHCP. nh 14:06 SamirGustavoi, [employer] is PHCP. nh 14:25 Patient has correct armband on for positive identification. Placed in gown. Bed in low mh5 position. Call light in reach. Side rails up X 1. Warm blanket given. Pulse ox on. NIBP on. 14:31 Radiology exam delayed due to lab results not completed at this time. (BUN/Creatinine). mw3 14:42 Mariana Hooks, RN is Primary Nurse. rb1 14:47 Initial lab(s) drawn, by nd, sent to lab. Inserted saline lock: 20 gauge in right mh5 antecubital area, using aseptic technique. Blood collected. 14:47 Basic Metabolic Panel Sent. mh5 14:47 CBC with Diff Sent. mh5 14:47 Creatinine for Radiology Sent. mh5 14:48 Hepatic Function Sent. mh5 14:48 Lipase Sent. mh5 15:11 CT completed. restarted iv access to lt AC, 22GA. Patient moved back from CT. bq 15:12 CT Abd/Pelvis - W/Contrast In Process Unspecified. EDMS 15:12 Inserted saline lock: 22 gauge in left antecubital area, using aseptic technique. rb1 ,using aseptic technique. Inserted by Heather in Radiology. 15:12 IV discontinued, intact, bleeding controlled, No redness/swelling at site. Pressure rb1 dressing applied, IV 20 G RA was discontinued by Heather in Radiology due to pt. complaining of pain when she flushed the IV. 16:09 Dylan Shi DO is Hospitalizing Provider. nh 17:15 Second set of blood cultures drawn by me. 5 17:20 Blood Culture Adult (2) Sent. rb1 18:08 No provider procedures requiring assistance completed. Patient admitted, IV remains in rb1 place. Administered Medications: 17:20 Drug: Flagyl 500 mg Volume: 100 ml; Route: IVPB; Rate: 200 ml/hr; Infused Over: 30 rb1 mins; Site: left antecubital; 18:06 Follow up: Response: No adverse reaction; IV Status: Completed infusion rb1 18:05 Drug: Cipro 400 mg {Note: Medication sent to the floor with pt..} Volume: 200 ml; rb1 Route: IVPB; Infused Over: 60 mins; Site: left antecubital; 18:10 Follow up: medication went to the floor with the pt rb1 Intake: Outcome: 16:10 Decision to Hospitalize by Provider. wa 18:08 Admitted to Med/surg accompanied by tech, via wheelchair, room 211, with chart, Report rb1 called to GARCIA Sánchez 18:08 Condition: stable 18:08 Instructed on the need for admit. 18:10 Patient left the ED. rb1 Signatures: Dispatcher [employer] EDMS Sloan Raphael MD MD cha Cronk, Niki, [employer] wa Heather Liu Rebecca, RN RN rb1 Idania France 5 Devyn, Soraya 3 Chris Rocha RN RN Nadia Fisher mw3
--- NOTE | 2019-03-07 16:11 | EDPHYS ---
Physician Documentation [facility] Name: Jose Ramon Boston Jr Age: 58 yrs Sex: Male : 1960 Arrival Date: 03/07/2019 Time: 13:40 Bed 13 Private MD: ED Physician Sloan Raphael HPI: 03/07 16:03 This 58 yrs old Male presents to ER via Ambulatory with complaints of Hernia. nh 16:03 Onset: The symptoms/episode began/occurred 2 day(s) ago. Associated signs and symptoms: oh Pertinent positives: abdominal pain, vomiting. Modifying factors: The patient symptoms are alleviated by nothing, the patient symptoms are aggravated by drinking, eating food. The patient has not experienced similar symptoms in the past. The patient has not recently seen a physician. Historical: - Allergies: 13:50 No Known Allergies; bp - Home Meds: 13:50 None [Active]; bp - PMHx: 13:50 aortic aneurysm; Hypertension; bp - PSHx: 13:50 AAA REPAIR; bp - Immunization history:: Adult Immunizations up to date. - Social history:: Smoking status: unknown. - Ebola Screening: : No symptoms or risks identified at this time. ROS: 16:03 Constitutional: Negative for fever, chills, and weight loss, Eyes: Negative for injury, nh pain, redness, and discharge, ENT: Negative for injury, pain, and discharge, Neck: Negative for injury, pain, and swelling, Cardiovascular: Negative for chest pain, palpitations, and edema, Respiratory: Negative for shortness of breath, cough, wheezing, and pleuritic chest pain, Back: Negative for injury and pain, : Negative for injury, bleeding, discharge, and swelling, MS/Extremity: Negative for injury and deformity, Skin: Negative for injury, rash, and discoloration, Neuro: Negative for headache, weakness, numbness, tingling, and seizure, Psych: Negative for depression, anxiety, suicide ideation, homicidal ideation, and hallucinations, Allergy/Immunology: Negative for hives, rash, and allergies, Endocrine: Negative for neck swelling, polydipsia, polyuria, polyphagia, and marked weight changes, Hematologic/Lymphatic: Negative for swollen nodes, abnormal bleeding, and unusual bruising. 16:03 Abdomen/GI: Positive for abdominal pain, nausea and vomiting. Exam: 16:03 Constitutional: This is a well developed, well nourished patient who is awake, alert, nh and in no acute distress. Head/Face: Normocephalic, atraumatic. Eyes: Pupils equal round and reactive to light, extra-ocular motions intact. Lids and lashes normal. Conjunctiva and sclera are non-icteric and not injected. Cornea within normal limits. Periorbital areas with no swelling, redness, or edema. ENT: Nares patent. No nasal discharge, no septal abnormalities noted. Tympanic membranes are normal and external auditory canals are clear. Oropharynx with no redness, swelling, or masses, exudates, or evidence of obstruction, uvula midline. Mucous membranes moist. Neck: Trachea midline, no thyromegaly or masses palpated, and no cervical lymphadenopathy. Supple, full range of motion without nuchal rigidity, or vertebral point tenderness. No Meningismus. Chest/axilla: Normal chest wall appearance and motion. Nontender with no deformity. No lesions are appreciated. Cardiovascular: Regular rate and rhythm with a normal S1 and S2. No gallops, murmurs, or rubs. Normal PMI, no JVD. No pulse deficits. Respiratory: Lungs have equal breath sounds bilaterally, clear to auscultation and percussion. No rales, rhonchi or wheezes noted. No increased work of breathing, no retractions or nasal flaring. Back: No spinal tenderness. No costovertebral tenderness. Full range of motion. Skin: Warm, dry with normal turgor. Normal color with no rashes, no lesions, and no evidence of cellulitis. MS/ Extremity: Pulses equal, no cyanosis. Neurovascular intact. Full, normal range of motion. Neuro: Awake and alert, GCS 15, oriented to person, place, time, and situation. Cranial nerves II-XII grossly intact. Motor strength 5/5 in all extremities. Sensory grossly intact. Cerebellar exam normal. Normal gait. Psych: Awake, alert, with orientation to person, place and time. Behavior, mood, and affect are within normal limits. 16:03 Abdomen/GI: Inspection: abdomen appears normal, Bowel sounds: normal, Palpation: mass, that is tender, of the right upper quadrant and left upper quadrant, Hernia: noted in the paraumbilical area, incarceration, that is moderate, tenderness. Vital Signs: 13:50 BP 146 / 98; Pulse 86; Resp 16; Temp 98.1; Pulse Ox 97% ; Weight 75.75 kg; Height 5 ft. bp 6 in. (167.64 cm); 14:52 BP 125 / 93; Pulse 78; Resp 18; Temp 98.1(O); Pulse Ox 95% on R/A; mh5 16:11 BP 166 / 97; Pulse 64; Resp 16; Temp 98.4(O); Pulse Ox 96% on R/A; mh5 17:21 BP 144 / 94; Pulse 76; Resp 18; Temp 98.6(O); Pulse Ox 96% on R/A; mh5 18:00 BP 146 / 92; Pulse 71; Resp 17; Temp 98.5(O); Pulse Ox 97% on R/A; Pain 0/10; rb1 13:50 Body Mass Index 26.95 (75.75 kg, 167.64 cm) bp Procedures: 16:03 Reduction:. oh MDM: 14:05 Patient medically screened. [facility] 16:03 Data reviewed: vital signs, nurses notes, lab test result(s), radiologic studies, I nh have discussed the patient's presentation/case with the attending Emergency Department Physician; and as a result, I will admit patient. Counseling: I had a detailed discussion with the patient and/or guardian regarding: the historical points, exam findings, and any diagnostic results supporting the discharge/admit diagnosis, lab results, radiology results, the need for further work-up and treatment in the hospital. 03/07 14:10 Order name: Basic Metabolic Panel; Complete Time: 15:06 oh 03/07 14:10 Order name: CBC with Diff; Complete Time: 15:06 oh 03/07 14:10 Order name: Creatinine for Radiology; Complete Time: 15:06 oh 03/07 14:10 Order name: Hepatic Function; Complete Time: 15:06 oh 03/07 14:10 Order name: Lipase; Complete Time: 15:06 oh 03/07 16:34 Order name: Blood Culture Adult (2) rb1 03/07 14:10 Order name: IV Saline Lock; Complete Time: 14:48 oh 03/07 14:10 Order name: Labs collected and sent; Complete Time: 14:48 oh 03/07 14:10 Order name: CT Abd/Pelvis - W/Contrast; Complete Time: 15:57 oh Administered Medications: 17:20 Drug: Flagyl 500 mg Volume: 100 ml; Route: IVPB; Rate: 200 ml/hr; Infused Over: 30 rb1 mins; Site: left antecubital; 18:06 Follow up: Response: No adverse reaction; IV Status: Completed infusion rb1 18:05 Drug: Cipro 400 mg {Note: Medication sent to the floor with pt..} Volume: 200 ml; rb1 Route: IVPB; Infused Over: 60 mins; Site: left antecubital; 18:10 Follow up: medication went to the floor with the pt rb1 Disposition: 03/08 07:32 Co-signature as Attending Physician, Sloan Raphael MD I agree with the assessment and shad plan of care. Disposition: 03/07/19 16:10 Hospitalization ordered by Dylan Shi for Observation. Preliminary diagnosis is Other and unspecified ventral hernia with obstruction, without gangrene. - Bed requested for Telemetry/MedSurg (observation). - Status is Observation. rb1 - Condition is Stable. - Problem is new. - Symptoms are unchanged. UTI on Admission? No Signatures: Dispatcher [employer] EDMS Kriss Garcia Corey, MD MD [facility] Ivanna Dawson, SOFTWARE SUPPORT ANALYST SOFTWARE SUPPORT ANALYSTHarry S. [facility] Mariana Hooks, RN RN [facility] Chris Rocha RN RN bp Corrections: (The following items were deleted from the chart) 03/07 17:03 16:10 Hospitalization Ordered by Dylan Shi DO for Observation. Preliminary bd diagnosis is Other and unspecified ventral hernia with obstruction, without gangrene. Bed requested for Telemetry/MedSurg (observation). Status is Observation. Condition is Stable. Problem is new. Symptoms are unchanged. UTI on Admission? No. oh 18:10 17:03 03/07/2019 16:10 Hospitalization Ordered by Dylan Shi DO for Observation. rb1 Preliminary diagnosis is Other and unspecified ventral hernia with obstruction, without gangrene. Bed requested for Telemetry/MedSurg (observation). Status is Observation. Condition is Stable. Problem is new. Symptoms are unchanged. UTI on Admission? No. bd
[2019-03-07] MEDS ORDERED: CIPROFLOXACIN 400mg IV 400 MG/200 ML BAG IV ONE (16:32)
[2019-03-07] MEDS ORDERED: METRONIDAZOLE 500mg IVPB 500 MG/100 ML BAG IV ONE (16:32)
--- NOTE | 2019-03-07 16:42 | P.HP ---
Certification for Inpatient Patient admitted to: Inpatient With expected LOS: >2 Midnights Patient will require the following post-hospital care: None Practitioner: I am a practitioner with admitting privileges, knowledge of patient current condition, hospital course, and medical plan of care. Services: Services provided to patient in accordance with Admission requirements found in Title 42 Section 412.3 of the Code of Federal Regulations Patient History Date of Service: 03/07/19 Primary Care Provider: [facility] Reason for admission: Abdominal pain, nausea and vomited History of Present Illness: 58-year-old male presented to emergency room with increasing abdominal pain, nausea and vomiting. Patient has history of aortic aneurysm repair. He has a large incision vertically to the abdomen. Patient reports hernia to this area. This has been getting bigger over time. He 1st noted it months ago. Patient reported increasing abdominal pain to the hernia just above the umbilicus on Friday. Patient continued to have increasing pain. Patient reported nausea, vomiting. He was not able to tolerate any food. He did have a bowel movement last night. Some chills noted. Slight distention noted to the hernia site. Patient came to the ER for further evaluation. In the ER patient evaluated. White count 9.4, hemoglobin 14.6. Sodium 140, potassium 3.9, BUN of 17, creatinine 1.86 with a GFR 37. Glucose 107. CT scan revealed ventral hernia within the mid abdomen containing dilated small bowel. This was compatible with incarcerated hernia. ER physician was able to reduce the hernia with relief. Patient was admitted for further evaluation and treatment. When I saw the patient the ER, pain to the abdomen improved. ER has spoken to surgery he will evaluate patient. Allergies No Known Allergies Allergy (Uncoded 12/14/17 11:16) Unknown Home medications list reviewed: Yes - Past Medical/Surgical History Diabetic: No -: Hypertension -: Hyperlipidemia -: History aortic aneurysm repair, status post occlusion, postop bypass -: Aortic aneurysm repair, status post occlusion, postop bypass Psychosocial/ Personal History: Patient is . He has 1 child. He does not work. - Family History Family History: Reviewed- Non-Contributory - Social History Smoking Status: Former smoker Alcohol use: No CD- Drugs: No Caffeine use: Yes Place of Residence: Home Review of Systems General: Weakness, As per HPI Eyes: Unremarkable ENT: Unremarkable Respiratory: Unremarkable Cardiovascular: Unremarkable Gastrointestinal: Nausea, Vomiting, Abdominal Pain, Constipation, As per HPI Genitourinary: Unremarkable Musculoskeletal: Unremarkable Integumentary: Unremarkable Neurological: Unremarkable Lymphatics: Unremarkable Physical Examination - Physical Exam General: Alert, In no apparent distress, Oriented x3, Cooperative HEENT: Atraumatic, Normocephalic, PERRLA, Mucous membr. moist/pink Neck: Supple, No Thyromegaly Respiratory: Clear to auscultation bilaterally, Normal air movement Cardiovascular: Normal pulses, Regular rate/rhythm Gastrointestinal: Soft and benign, Non-distended, Other (Mid line mid abdominal hernia. Easily reduced. Defect noted just above her umbilicus. Pain significantly improved.) Integumentary: No erythema, No warmth, No cyanosis Neurological: Normal speech, Normal strength at 5/5 x4 extr, Normal tone, Normal affect - Studies Laboratory Data (last 24 hrs) 03/07/19 14:40: Creatinine 1.86 H 03/07/19 14:40: WBC 9.4, Hgb 14.6, Hct 44.4, Plt Count 222 03/07/19 14:40: Sodium 140, Potassium 3.9, BUN 17, Creatinine 1.89 H, Glucose 107 H, Total Bilirubin 0.6, AST 17, ALT 19, Alkaline Phosphatase 107, Lipase 71 L Assessment and Plan - Plan Impression: Abdominal pain, nausea and vomiting secondary to incarcerated ventral hernia status post hernia reduction Acute renal injury Hypertension Hyperlipidemia History of aortic aneurysm repair with occlusion and eventual arterial bypass Plan: Abdominal pain, nausea and vomiting secondary to incarcerated ventral hernia status post hernia reduction: Patient will be admitted for further evaluation and treatment. ER physician reduced incarcerated ventral hernia with success. Pain significantly improved. Case discussed with surgery who will evaluate patient later. Patient will remain NPO. Will start IV fluids. Will provide medication for pain bed rest. No straining, pulling, pushing or lifting. Patient is to be monitored closely. Patient will be re-evaluated in the morning. If improved surgery will consider initiation of diet. If worsening patient may require surgical intervention. Will monitor closely. I will turn the service over to Dr. Reyez tomorrow. I will go over the plan of care with her. Acute renal injury: Likely from nausea and vomiting. Will start IV fluids. Will monitor and replace electrolytes appropriately. Hypertension: Patient takes metoprolol at home. Will provide IV medication as needed Hyperlipidemia: Will hold his statin medication. History of aortic aneurysm repair with occlusion and eventual arterial bypass: Overall stable. Will provide SCD for DVT prophylaxis. Discharge Plan: Home Plan to discharge in: 48 Hours - Advance Directives Does patient have a Living Will: No Does patient have a Durable POA for Healthcare: No - Code Status/Comfort Care Code Status Assessed: Yes (Patient full code.) Time Spent Managing Pts Care (In Minutes): 55
[2019-03-07] MEDS ORDERED: ACETAMINOPHEN 650MG/RECT SUPP PR PRN (18:10)
[2019-03-07] MEDS ORDERED: ACETAMINOPHEN 500 MG TAB PO PRN (18:10)
[2019-03-07] MEDS ORDERED: MORPHINE 2 MG/ML SYR IV PRN (18:10)
[2019-03-07] MEDS ORDERED: ONDANSETRON 4 MG/2 ML VIAL IV PRN (18:10)
[2019-03-07] MEDS ORDERED: METOPROLOL TARTRATE 5 MG/5 ML INJ IV PRN (18:10)
[2019-03-07] MEDS: ENOXAPARIN 30 MG/0.3 ML SQ SCH (18:34)
[2019-03-07] MEDS: D5 0.9 NS 1,000 ML IV SCH (18:37)
[2019-03-07] MEDS: FAMOTIDINE 20 MG/2 ML VIAL IV SCH (20:11)
[2019-03-07] MEDS: CIPROFLOXACIN 400mg IV 400 MG/200 ML BAG IV SCH (20:14)
[2019-03-08] MEDS: METRONIDAZOLE 500mg IVPB 500 MG/100 ML BAG IV SCH ×3 (00:54→16:32)
[2019-03-08] MEDS: D5 0.9 NS 1,000 ML IV SCH ×2 (04:39→16:33)
[2019-03-08 06:33] LABS: Absolute Lymphocytes (CBC) 2.2 K/uL (0.7-4.9); Absolute Monocytes 0.6 K/uL (0.1-1.3); Absolute Neutrophil 2.9 K/uL (1.8-8.0); Basophils % 0.6 % (0-1.3); Eosinophils % 2.8 % (0-4.4); Lymphocytes % 37.8 % (15.3-44.8); MPV 9.2 fL (7.6-11.3); Monocytes % 9.9 % (3.3-12.3)
[2019-03-08 06:48] LABS: Magnesium 2.3 mg/dL (1.8-2.4); Potassium 3.9 mmol/L (3.5-5.1)
--- NOTE | 2019-03-08 09:24 | CON ---
Date of Consultation: 03/07/2019 History Of Present Illness: Mr. Bsoton is a 58-year-old patient, who comes today to the ER with a ventral hernia that was incarcerated, and reduced by the ER physician. The patient is admitted for o bservation and now a surgical consult was obtained. The story goes; he is saying that about a year a go, he had an aortic aneurysm that got clotted. Then, after that, he received a graft for aortobifem oral bypass, that was complicated. He went back to work and within weeks, he noticed that his legs w ere getting numb suddenly and he was diagnosed with a clotted graft that required declotting. About 2 weeks after, he said that he felt the same pain once again and they discovered that the patient has some major infection in the abdomen where the graft was that required not only drainage but also rem oval of aortobifemoral bypass. When that had to be done, emergently they had to do as per the patien t, axillobifemoral bypass. Not too long after that, he developed this hernia in the mid abdomen. He has been dealing with that for the last several months. It has been giving him more trouble for the last month until today, he could not push it back, so he came to the ER. Right now, he feels better . The hernia is reduced. He has no abdominal pain. He was admitted obviously for observation. Past Medical History: Aortic aneurysm, hypertension, multiple clots in the graft, intraabdominal inf ections, midline ventral aneurysm. Past Surgical History: AAA repair, followed by removal of the aortobifemoral bypass graft and an stella rgent axillobifemoral extracorporeal. The graft can be felt from the axilla into the left flank maribel g near the anterior left flank and going into the left femoral region. Social History: He does not smoke. He does not drink alcohol. Family History: Noncontributory. Review of Systems: Ten points, otherwise unremarkable. Physical Examination: General: The patient is awake and alert. No more nausea. No abdominal pain at this moment. Chest: Clear. Abdomen: Soft and depressible. The patient has a ventral hernia and it is reducible, nontender at t his time. The patient has incisions over the inguinal region coming from the axilla going to left ch est, going into the left flank to the graft, and inserting apparently in the left femoral region, and from there another graft going into the right femoral region. Extremities: Good capillary refill. Laboratory Data: Blood work shows WBC count of 9.4, hemoglobin of 14.6, chloride is 108. CAT scan o f the abdomen and pelvis, this was after reduction by the ER physician, shows intestines on the herni a with possible obstruction. Assessment And Plan: A 58-year-old patient, who came to the ER with an incarcerated ventral hernia, reduced by the ER physician. The patient feels better, right now asymptomatic was admitte d for observation for obvious reasons were there for about an hour. Still, this hernia sh ould be fixed. This is going to happen once again. The problem is that he is having trouble with __ clotting in his graft before with multiple emergent surgeries, even in the area where we are going to do the surgery at this moment, and I believe this should be fixed in a tertiary center, whe re they can deal with a clot of this axillobifemoral bypass. Plus, when you fix the hernia, you may encounter certain situations that may require more than one surgical intervention, may goran n need a vascular surgery that we find something in that area that is involved with the hernia and ex tent to the area of the axillobifemoral. We do not like to expose that graft, and also, there is a c tico for that to clot again as happened before. For that reason, I believe in this patient, if he f eels better and is completely asymptomatic, you have a chance to obviously discharge the patient home and he must go to the clinic [place], where his doctors are. Another alternative, we just transfer him to that institution to his surgeons in that area. We will discuss that with the __ doctor again in the morning. ROBERT/JUANPABLO Voice ID: [id number] Report ID: [id number]
[2019-03-08] MEDS: FAMOTIDINE 20 MG/2 ML VIAL IV SCH (09:43)
[2019-03-08] MEDS: ENOXAPARIN 30 MG/0.3 ML SQ SCH (09:43)
[2019-03-08] MEDS: CIPROFLOXACIN 400mg IV 400 MG/200 ML BAG IV SCH (09:45)
[2019-03-08 15:56] LABS: Urine Appearance CLEAR; Urine Bilirubin NEGATIVE (NEG); Urine Blood 3+ (NEG); Urine Color DK YELLOW; Urine Glucose NEGATIVE (NEG); Urine Protein 1+ (NEG); Urine Specific Gravity >=1.030 (1.005-1.030); Urine Urobilinogen 0.2 mg/dL (0.2-1.0)
[2019-03-08 15:57] LABS: Urine Microscopic Reflex ORDER UMIC
[2019-03-08 16:05] LABS: Urine Bacteria <20 /HPF (NONE SEEN); Urine Culture Reflex Order NOT NEEDED
[2019-03-08 16:06] LABS: Urine Mucus 1+ /HPF (NONE SEEN)
--- NOTE | 2019-03-08 17:23 | P.DS ---
Admission Date: 03/07/19 Discharge Date: 03/08/19 Primary Care Provider: [facility] Disposition: ROUTINE DISCHARGE Discharge Condition: GOOD Reason for Admission: Abdominal pain, nausea and vomited Consultations: General surgeon - Problems (1) Incarcerated hernia Current Visit: Yes Status: Acute (2) Abdominal pain Current Visit: Yes Status: Acute Brief History of Present Illness: 58-year-old male presented to emergency room with increasing abdominal pain, nausea and vomiting. Patient has history of aortic aneurysm repair. He has a large incision vertically to the abdomen. Patient reports hernia to this area. This has been getting bigger over time. He 1st noted it months ago. Patient reported increasing abdominal pain to the hernia just above the umbilicus on Friday. Patient continued to have increasing pain. Patient reported nausea, vomiting. He was not able to tolerate any food. He did have a bowel movement last night. Some chills noted. Slight distention noted to the hernia site. Patient came to the ER for further evaluation. In the ER patient evaluated. White count 9.4, hemoglobin 14.6. Sodium 140, potassium 3.9, BUN of 17, creatinine 1.86 with a GFR 37. Glucose 107. CT scan revealed ventral hernia within the mid abdomen containing dilated small bowel. This was compatible with incarcerated hernia. ER physician was able to reduce the hernia with relief. Patient was admitted for further evaluation and treatment. When I saw the patient the ER, pain to the abdomen improved. ER has spoken to surgery he will evaluate patient. Hospital Course: Over the course of the hospital stay patient remained stable Patient was initially admitted to the hospital for abdominal pain abdominal CT was consistent with incarcerated ventral hernia. Patient had reduction in the ER with general surgeon. Patient had marked improvement in his abdominal pain at that time as well. At that time patient's general surgeon who recommended the patient will follow up with [facility] where he had initially had his abdominal surgery and several repairs after that. Patient was given a clear liquid diet once he was able to tolerate diet well without having nausea or vomiting then discharged home under stable condition was asked to follow up with [facility] general surgery. Patient demonstrate understanding and thus was discharged home under stable condition. Patient was asked to continue with clear liquid diet till he gets followed up by general surgery. Patient was also asked to come back to the ER if acute worsening of his symptoms are unable to get a follow up appointment at [facility] Vital Signs/Physical Exam: Temp Pulse Resp BP Pulse Ox 97.5 F 51 16 145/73 H 96 03/08/19 12:00 03/08/19 12:00 03/08/19 12:00 03/08/19 12:00 03/08/19 12:00 General: Alert, In no apparent distress HEENT: Atraumatic, PERRLA, EOMI Neck: Supple, JVD not distended Respiratory: Clear to auscultation bilaterally, Normal air movement Cardiovascular: Regular rate/rhythm, Normal S1 S2 Gastrointestinal: Normal bowel sounds, No tenderness, Other (Ventral hernia noted) Musculoskeletal: No tenderness Integumentary: No rashes Neurological: Normal speech, Normal tone, Normal affect Lymphatics: No axilla or inguinal lymphadenopathy Laboratory Data at Discharge: WBC 5.9 K/uL (4.3-10.9) D 03/08/19 05:57 Hgb 12.2 g/dL (13.6-17.9) L 03/08/19 05:57 Hct 37.0 % (39.6-49.0) L D 03/08/19 05:57 Plt Count 189 K/uL (152-406) 03/08/19 05:57 Sodium 140 mmol/L (136-145) 03/08/19 05:57 Potassium 3.9 mmol/L (3.5-5.1) 03/08/19 05:57 BUN 16 mg/dL (7-18) 03/08/19 05:57 Creatinine 1.53 mg/dL (0.55-1.3) H 03/08/19 05:57 Glucose 111 mg/dL (74-106) H 03/08/19 05:57 Magnesium 2.3 mg/dL (1.8-2.4) 03/08/19 05:57 Total Bilirubin 0.6 mg/dL (0.2-1.0) 03/07/19 14:40 AST 17 U/L (15-37) 03/07/19 14:40 ALT 19 U/L (12-78) 03/07/19 14:40 Alkaline Phosphatase 107 U/L (45-117) 03/07/19 14:40 Lipase 71 U/L (73-393) L 03/07/19 14:40 Home Medications: Atorvastatin Calcium [Lipitor] 40 mg PO BEDTIME 03/07/19 Metoprolol Tartrate 50 mg PO BID 03/07/19 Patient Discharge Instructions: Please f.u with [facility] general Surgery regarding your hernia Diet: Full or Clear Diet Activity: Ad miguel ángel
== END 2019-03-08 18:35 | disposition home or self-care (01) | DRG 395 ==
LOC: ER 13:38 → ERHOLD 16:28 → 2ND 17:58
PROVIDERS: ADMIT Family Medicine; ATTEND Family Medicine
DX: K43.6 Other and unspecified ventral hernia with obstruction, without gangrene (principal); I10 Essential (primary) hypertension
CPT/HCPCS: 36415; 74177; 80048; 80076; 81003; 81015; 83690; 83735; 85025; 87040; 96365; 96375; 99285; J0744; J1650; Q9967

== ENCOUNTER 2019-07-16 01:36 | Inpatient (IN) | payer OTHER ==
[2019-07-16] MEDS ORDERED: MORPHINE 4 MG/ML SYR ONE (02:10)
[2019-07-16] MEDS ORDERED: MORPHINE 2 MG/ML SYR ONE (02:10)
[2019-07-16] MEDS ORDERED: ONDANSETRON 4 MG/2 ML VIAL ONE ×2 (02:10→10:54)
[2019-07-16] MEDS ORDERED: FENTANYL CITR 100 MCG/2 ML ONE ×4 (02:43→14:13)
[2019-07-16] MEDS ORDERED: NA CHLORIDE 0.9% 1,000 ML ONE (03:05)
[2019-07-16 03:25] LABS: Absolute Lymphocytes (CBC) 1.1 K/uL (0.7-4.9); Basophils % 0.9 % (0-1.3); Hematocrit 41.4 % (39.6-49.0); Lymphocytes % 11.7 % (15.3-44.8); MPV 10.2 fL (7.6-11.3); RBC Red Blood Cell Count 4.28 M/uL (4.33-5.43)
[2019-07-16 03:37] LABS: Protime INR 1.04
[2019-07-16 03:47] LABS: ALT/SGPT 26 U/L (12-78); AST/SGOT 17 U/L (15-37); Albumin 4.2 g/dL (3.4-5.0); Alkaline Phosphatase 104 U/L (45-117); BUN Blood Urea Nitrogen 17 mg/dL (7-18); Bicarbonate 28 mmol/L (21-32); Bilirubin Direct < 0.1 mg/dL (0-0.2); Bilirubin Total 0.3 mg/dL (0.2-1.0); Glucose Level 96 mg/dL (74-106); Potassium 3.8 mmol/L (3.5-5.1); Protein, Total 7.8 g/dL (6.4-8.2); Sodium Level 143 mmol/L (136-145)
[2019-07-16] MEDS ORDERED: METRONIDAZOLE 500mg IVPB 500 MG/100 ML BAG IV ONE (04:49)
[2019-07-16] MEDS ORDERED: CEFTRIAXONE/SWI 1gm 1 GM/10 ML SYR ONE (04:49)
--- NOTE | 2019-07-16 04:51 | ER ---
Nurse's Notes [facility] Name: Jose Ramon Boston Jr Age: 58 yrs Sex: Male : 1960 Arrival Date: 07/16/2019 Time: 01:37 Bed 19 Private MD: Diagnosis: Incarcerated Ventral Hernia;Small bowel obstruction Presentation: 07/16 01:45 Presenting complaint: Patient states: At 7 pm My hernia started hurting, my social jb4 worker told me to put my binder back on. I kept it on for 3 hours then took it off because it was hurting. the hernia knotted up and would not go back in. 01:45 Transition of care: patient was not received from another setting of care. Onset of jb4 symptoms was July 16, 2019. Risk Assessment: Do you want to hurt yourself or someone else? Patient reports no desire to harm self or others. Initial Sepsis Screen: Does the patient meet any 2 criteria? No. Patient's initial sepsis screen is negative. Does the patient have a suspected source of infection? Yes: Acute abdominal pain. Care prior to arrival: None. 01:45 Method Of Arrival: Wheelchair jb4 01:45 Acuity: LUKE 2 jb4 Historical: - Allergies: 01:54 No Known Allergies; jb4 - Home Meds: 01:54 Metoprolol Tartrate Oral [Active]; Cholesterol medication [Active]; jb4 - PMHx: 01:54 aortic aneurysm; Hypertension; High Cholesterol; Hernia; jb4 - PSHx: 01:54 AAA REPAIR; jb4 - Immunization history:: Adult Immunizations not up to date. - Social history:: Smoking status: Patient uses tobacco products, denies chronic smoking, but will smoke occasionally, Patient uses alcohol, occasionally. - Ebola Screening: : No symptoms or risks identified at this time. - Family history:: not pertinent. - Hospitalizations: : No recent hospitalization is reported. Screenin:58 Abuse screen: Denies threats or abuse. Denies injuries from another. Nutritional wh screening: No deficits noted. Tuberculosis screening: No symptoms or risk factors identified. Fall Risk None identified. Assessment: 01:59 General: Appears in no apparent distress. uncomfortable, Behavior is calm, cooperative, wh appropriate for age. Pain: Complains of pain in abdomen Pain does not radiate. Pain currently is 10 out of 10 on a pain scale. Quality of pain is described as aching, Pain began 4 hours ago. Neuro: Level of Consciousness is awake, alert, obeys commands, Oriented to person, place, time, situation, Appropriate for age. Cardiovascular: Heart tones S1 S2. Respiratory: Airway is patent Respiratory effort is even, unlabored, Respiratory pattern is regular, symmetrical. GI: Abdomen is non-distended, Bowel sounds present X 4 quads. Mass noted in mid abdomen Reports hernia from prior abdominal surgery. : No signs and/or symptoms were reported regarding the genitourinary system. EENT: No signs and/or symptoms were reported regarding the EENT system. Derm: Skin is intact, is healthy with good turgor, Skin is pink, warm \T\ dry. normal. Musculoskeletal: Circulation, motion, and sensation intact. 03:00 Reassessment: Patient appears in no apparent distress at this time. No changes from previously documented assessment. Patient and/or family updated on plan of care and expected duration. Pain level reassessed. Patient is alert, oriented x 3, equal unlabored respirations, skin warm/dry/pink. Dr Hodge at bedside doing manual manipulation of the hernia. 04:20 Reassessment: Patient appears in no apparent distress at this time. No changes from previously documented assessment. Patient and/or family updated on plan of care and expected duration. Pain level reassessed. Patient is alert, oriented x 3, equal unlabored respirations, skin warm/dry/pink. Patient states feeling better. 05:36 Reassessment: Patient appears in no apparent distress at this time. No changes from previously documented assessment. Patient and/or family updated on plan of care and expected duration. Pain level reassessed. Patient is alert, oriented x 3, equal unlabored respirations, skin warm/dry/pink. Vital Signs: 01:45 BP 181 / 109; Pulse 70; Resp 18; Temp 97.8(O); Pulse Ox 98% on R/A; Weight 71.67 kg jb4 (R); Height 5 ft. 6 in. (167.64 cm); Pain 10/10; 03:01 BP 177 / 99; Pulse 69; Resp 18; Pulse Ox 100% ; wh 04:15 BP 147 / 96; Pulse 63; Resp 18; Pulse Ox 95% on R/A; wh 05:43 BP 153 / 94; Pulse 70; Resp 18; Pulse Ox 98% on R/A; wh 01:45 Body Mass Index 25.50 (71.67 kg, 167.64 cm) jb4 ED Course: 01:37 Patient arrived in ED. ds1 01:45 Arm band placed on right wrist. jb4 01:51 Bobo Hodge MD is Attending Physician. rn 01:52 Triage completed. jb4 01:54 Malou Vines is Primary Nurse. 01:54 Inserted saline lock: 20 gauge in right antecubital area, using aseptic technique. wh Blood collected. 01:58 Patient has correct armband on for positive identification. Placed in gown. Bed in low wh position. Call light in reach. Side rails up X 1. Pulse ox on. NIBP on. 03:37 Radiology exam delayed due to lab results not completed at this time. (BUN/Creatinine). jg6 04:20 CT Abd/Pelvis - IV Contrast Only In Process Unspecified. EDMS 04:50 Timur Wilson MD is Hospitalizing Provider. rn 05:36 NGT: inserted 18 Fr. via right nare. verified placement of air over stomach, verified wh return of gastric contents, to intermittent suction. Returned gastric contents. flushed with 20 ml NS Patient tolerated well. with 450 ml gastric output. 06:24 No provider procedures requiring assistance completed. Patient admitted, IV remains in wh place. Administered Medications: 02:17 Drug: Zofran 4 mg Route: IVP; Site: right antecubital; 06:25 Follow up: Response: No adverse reaction; Nausea is decreased 02:17 Drug: morphine 6 mg {Note: RASS 0.} Route: IVP; Site: right antecubital; 06:25 Follow up: Response: No adverse reaction; Pain is decreased; RASS: Alert and Calm (0) 03:03 Drug: fentaNYL (PF) 50 mcg {Note: RASS 0.} Route: IVP; Site: right antecubital; 06:26 Follow up: Response: No adverse reaction; Pain is decreased; RASS: Alert and Calm (0) 03:03 Drug: fentaNYL (PF) 25 mcg Route: IVP; Site: right antecubital; 05:52 Follow up: Response: No adverse reaction; Pain is decreased; RASS: Alert and Calm (0) 03:07 Drug: NS 0.9% 1000 ml Route: IV; Rate: 1000 ml; Site: right antecubital; 05:52 Follow up: Response: No adverse reaction; IV Status: Completed infusion 04:41 Drug: Rocephin - (cefTRIAXone) 1 grams Route: IVPB; Infused Over: 30 mins; Site: right rr5 antecubital; 05:52 Follow up: Response: No adverse reaction; IV Status: Completed infusion 05:39 Drug: Flagyl 500 mg Volume: 100 ml; Route: IVPB; Rate: 200 ml/hr; Infused Over: 30 wh mins; Site: right antecubital; 05:53 Follow up: Response: No adverse reaction; IV Status: Completed infusion Outcome: 04:51 Decision to Hospitalize by Provider. rn 06:24 Admitted to Tele accompanied by nurse, via wheelchair, room 425, with chart, Report called to Jessica Henson RN 06:24 Condition: good 06:24 Instructed on the need for admit. 06:25 Patient left the ED. Signatures: Dispatcher [employer] [facility] Francheska Escalera ds1 Bobo Hodge MD MD rn Bryson, James, RN RN jb4 Malou Vines Mel Obregon6 Deepak Mejia RN RN rr5 Corrections: (The following items were deleted from the chart) 01:56 01:45 Acuity: LUKE 3 jb4 jb4 07:11 05:36 NGT: inserted 18 Fr. via right nare. verified placement of air over stomach, verified return of gastric contents, to intermittent suction. Returned gastric contents. flushed with 20 ml NS Patient tolerated well.
--- NOTE | 2019-07-16 04:52 | EDPHYS ---
Physician Documentation [facility] Name: Jose Ramon Boston Jr Age: 58 yrs Sex: Male : 1960 Arrival Date: 07/16/2019 Time: 01:37 Bed 19 Private MD: ED Physician Bobo Hodge HPI: 07/16 03:52 This 58 yrs old Male presents to ER via Wheelchair with complaints of Hernia rn Pain. 03:52 The patient presents with abdominal pain. Onset: The symptoms/episode began/occurred rn yesterday. The symptoms do not radiate. Associated signs and symptoms: Pertinent positives: nausea and vomiting, Pertinent negatives: blood in stools, diarrhea, dysuria, fever, hematuria, shortness of breath, testicular pain, vomiting blood. The symptoms are described as crampy, intermittent. Modifying factors: The symptoms are alleviated by nothing, the symptoms are aggravated by pressure, touching the area. Severity of pain: At its worst the pain was moderate in the emergency department the pain is unchanged. The patient has experienced similar episodes in the past. The patient has not recently seen a physician. Reports abdominal hernia, has had over a year, reports last night around 1930, felt pain to ventral hernia, and having trouble pushing it back in. + nausea and vomiting x 2. Having bowel movements. States has happened to him before, was admitted and hernia reduced by Dr. France, no surgery recommended at the time. TOld to f/u with specialist in [place]. . Historical: - Allergies: 01:54 No Known Allergies; jb4 - Home Meds: 01:54 Metoprolol Tartrate Oral [Active]; Cholesterol medication [Active]; jb4 - PMHx: 01:54 aortic aneurysm; Hypertension; High Cholesterol; Hernia; jb4 - PSHx: 01:54 AAA REPAIR; jb4 - Immunization history:: Adult Immunizations not up to date. - Social history:: Smoking status: Patient uses tobacco products, denies chronic smoking, but will smoke occasionally, Patient uses alcohol, occasionally. - Ebola Screening: : No symptoms or risks identified at this time. - Family history:: not pertinent. - Hospitalizations: : No recent hospitalization is reported. ROS: 03:52 Constitutional: Negative for fever, chills, and weight loss, Cardiovascular: Negative rn for chest pain, palpitations, and edema, Respiratory: Negative for shortness of breath, cough, wheezing, and pleuritic chest pain, Abdomen/GI: + abd pain and hernia pain Back: Negative for injury and pain, : Negative for injury, bleeding, discharge, and swelling, MS/Extremity: Negative for injury and deformity, Neuro: Negative for headache, weakness, numbness, tingling, and seizure. Exam: 03:52 Constitutional: This is a well developed, well nourished patient who is awake, alert, rn and in no acute distress. Head/Face: Normocephalic, atraumatic. ENT: MMM Cardiovascular: Regular rate and rhythm. No pulse deficits. Respiratory: Speaking full sentences. No increased work of breathing, no retractions or nasal flaring. Abdomen/GI: Soft, + ventral hernia, unable to reduce after 2 rounds of narcotic pain meds. Skin: Warm, dry MS/ Extremity: Pulses equal, no cyanosis. Neurovascular intact. Full, normal range of motion. Equal circumference. Neuro: Awake and alert, GCS 15, oriented to person, place, time, and situation. Cranial nerves II-XII grossly intact. Motor strength 5/5 in all extremities. Sensory grossly intact. Cerebellar exam normal. Normal gait. Vital Signs: 01:45 BP 181 / 109; Pulse 70; Resp 18; Temp 97.8(O); Pulse Ox 98% on R/A; Weight 71.67 kg jb4 (R); Height 5 ft. 6 in. (167.64 cm); Pain 10/10; 03:01 BP 177 / 99; Pulse 69; Resp 18; Pulse Ox 100% ; wh 04:15 BP 147 / 96; Pulse 63; Resp 18; Pulse Ox 95% on R/A; wh 05:43 BP 153 / 94; Pulse 70; Resp 18; Pulse Ox 98% on R/A; wh 01:45 Body Mass Index 25.50 (71.67 kg, 167.64 cm) jb4 MDM: 01:51 Patient medically screened. rn 04:41 Differential diagnosis: incarcerated hernia, SBO. Data reviewed: vital signs, nurses rn notes, lab test result(s), radiologic studies, CT scan, and as a result, I will admit patient. Counseling: I had a detailed discussion with the patient and/or guardian regarding: the historical points, exam findings, and any diagnostic results supporting the discharge/admit diagnosis, lab results, radiology results, the need for further work-up and treatment in the hospital. Admission orders: after a detailed discussion of the patient's condition and case, the admit orders are written by me. ED course: Attempted a 3rd reduction, after 6mg morphine and 75mcg fentanyl, unable to reduce hernia, despite Trendelenburg position and flat position. CT shows SBO due to incarcerated hernia. Will admit and consult Dr. Hahn. . ED course: Spoke with Dr. Hahn at 0445.. 07/16 03:01 Order name: CBC with Diff; Complete Time: 03:51 rn 07/16 03:01 Order name: Basic Metabolic Panel; Complete Time: 03:51 rn 07/16 03:01 Order name: Protime (+inr); Complete Time: 03:51 rn 07/16 03:01 Order name: Ptt, Activated; Complete Time: 03:51 rn 07/16 03:01 Order name: LFT's; Complete Time: 03:51 rn 07/16 05:42 Order name: CBC with Automated Diff EDNV 07/16 05:42 Order name: CBC with Automated Diff EDNV 07/16 05:42 Order name: Comprehensive Metabolic Panel EDNV 07/16 05:43 Order name: Comprehensive Metabolic Panel EDNV 07/16 05:43 Order name: Lipase EDNV 07/16 05:43 Order name: Lipase EDNV 07/16 05:43 Order name: Magnesium EDNV 07/16 05:43 Order name: Magnesium EDNV 07/16 05:43 Order name: Phosphorus EDNV 07/16 03:01 Order name: IV Start; Complete Time: 03:03 rn 07/16 03:01 Order name: CT Abd/Pelvis - IV Contrast Only rn 07/16 05:42 Order name: CONS Physician Consult EDNV 07/16 05:42 Order name: NPO EDMS 07/16 05:43 Order name: Phosphorus EDMS 07/16 05:43 Order name: Protime (+INR) EDMS 07/16 05:43 Order name: Protime (+INR) EDMS 07/16 05:43 Order name: PTT, Activated Partial Thromb EDMS 07/16 05:43 Order name: PTT, Activated Partial Thromb EDMS 07/16 04:41 Order name: NG Tube; Complete Time: 05:17 rn Administered Medications: 02:17 Drug: Zofran 4 mg Route: IVP; Site: right antecubital; 06:25 Follow up: Response: No adverse reaction; Nausea is decreased 02:17 Drug: morphine 6 mg {Note: RASS 0.} Route: IVP; Site: right antecubital; 06:25 Follow up: Response: No adverse reaction; Pain is decreased; RASS: Alert and Calm (0) 03:03 Drug: fentaNYL (PF) 50 mcg {Note: RASS 0.} Route: IVP; Site: right antecubital; 06:26 Follow up: Response: No adverse reaction; Pain is decreased; RASS: Alert and Calm (0) 03:03 Drug: fentaNYL (PF) 25 mcg Route: IVP; Site: right antecubital; 05:52 Follow up: Response: No adverse reaction; Pain is decreased; RASS: Alert and Calm (0) 03:07 Drug: NS 0.9% 1000 ml Route: IV; Rate: 1000 ml; Site: right antecubital; 05:52 Follow up: Response: No adverse reaction; IV Status: Completed infusion 04:41 Drug: Rocephin - (cefTRIAXone) 1 grams Route: IVPB; Infused Over: 30 mins; Site: right rr5 antecubital; 05:52 Follow up: Response: No adverse reaction; IV Status: Completed infusion 05:39 Drug: Flagyl 500 mg Volume: 100 ml; Route: IVPB; Rate: 200 ml/hr; Infused Over: 30 wh mins; Site: right antecubital; 05:53 Follow up: Response: No adverse reaction; IV Status: Completed infusion Disposition: 07/16/19 04:51 Hospitalization ordered by Timur Wilson for Inpatient Admission. Preliminary diagnosis are Incarcerated Ventral Hernia, Small bowel obstruction. - Bed requested for Telemetry/MedSurg (Inpatient). - Status is Inpatient Admission. - Condition is Stable. - Problem is new. - Symptoms are unchanged. UTI on Admission? No Signatures: Dispatcher [employer] EDMS Jessica Strickland RN RN Bobo Hodge MD MD rn Bryson, James, RN RN jb4 Malou Vines Deepak Mejia RN RN rr5 Corrections: (The following items were deleted from the chart) 05:04 04:51 Hospitalization Ordered by Timur Wilson MD for Inpatient Admission. Preliminary mw diagnosis is Incarcerated Ventral Hernia; Small bowel obstruction. Bed requested for Telemetry/MedSurg (Inpatient). Status is Inpatient Admission. Condition is Stable. Problem is new. Symptoms are unchanged. UTI on Admission? No. rn 06:25 05:04 07/16/2019 04:51 Hospitalization Ordered by Timur Wilson MD for Inpatient wh Admission. Preliminary diagnosis is Incarcerated Ventral Hernia; Small bowel obstruction. Bed requested for Telemetry/MedSurg (Inpatient). Status is Inpatient Admission. Condition is Stable. Problem is new. Symptoms are unchanged. UTI on Admission? No. mw
[2019-07-16] MEDS ORDERED: ONDANSETRON 4 MG/2 ML VIAL IV PRN (05:35)
[2019-07-16] MEDS ORDERED: ACETAMINOPHEN 650MG/RECT SUPP RECT PRN (05:35)
[2019-07-16] MEDS ORDERED: ACETAMINOPHEN 500 MG TAB PO PRN (05:35)
[2019-07-16] MEDS ORDERED: KCL 20 MEQ/100 mL IVPB 20 MEQ/100 ML BAG IV SCH (08:00)
--- NOTE | 2019-07-16 09:04 | CON ---
Date of Consultation: 07/16/2019 Brief History Of Present Illness: Patient is a 58-year-old male [facility] abdominal wall hernia causing partial small bowel obstruction. Patient s dhaval he has had multiple episodes like this before in the past, where he has had hernias of this typ e. He usually goes to [facility] for this problem, but his friend brought him here. He states by mistake when he missed to go to [facility] and he usually is transferred to the [facility] for definit arleth treatment there and he has had all of the surgeries there were before in the past. He now comes in with nausea, vomiting, abdominal distention, inability to reduce his ventral hernia, which is know n to him. He has had multiple abdominal surgeries and vascular surgeries including aortic repair, ao rtic graft placement and aortic graft infection, extra-anatomic bypass with an ax-fem and fem-fem microfilmer ssover. He has had multiple hospitalizations and had his hernia reduced. He states that he was arra nged to have this surgery fixed at [facility] in the future, but he does not know the exact date. Past Medical History: Significant for the aortic aneurysm, hypertension, multiple vascular infection s, high cholesterol, hernia, and ventral hernia as described. Past Surgical History: He has had a AAA repair, fem-fem bypass and crossover extra-anatomic bypass, multiple revisions of his vascular surgery. He is unsure of all the details regarding this. He only takes metoprolol and a cholesterol medication. He does not know otherwise. Social History: He denies drug use but does smoke tobacco products as much as he can. He has alcoho l occasionally too. He states that he is currently living under a bridge and in indigent. Review of Systems: A 10-point review of systems other than HPI, denies. Physical Examination: Vital Signs: At time of my examination were blood pressure 165/80, pulse 64, respiratory rate 16, te mperature 98.6. General: He is awake, alert, and oriented. Psychiatric: He is appropriate and conversive HEENT: He is normocephalic. His sclerae are slightly injected, but they are anicteric. His mucous membranes are moist. His oropharynx is clear. There is an NG tube in place with effluent. Neck: Supple. No JVD. Chest: Normal expansion and excursion. Cardiovascular: Regular rhythm. Pulmonary: Clear to auscultation bilaterally. Abdomen: Soft with a positive ventral midline hernia from previous incision. He has a large laparot yadira incision. He has an extra-anatomic bypass on the left side of his abdomen, which feels like an a x-fem with a fem-fem crossover which is palpable. His abdominal exam continued, however, I am unable to reduce the hernia at this time. It is mildly tender to palpation. There are no peritoneal signs . He does not have an acute abdomen at this time. Laboratory Data: Reveals a white blood cell count of 9.1, hemoglobin 13.8, hematocrit of 41.4, plate let count is 186, neutrophils are 80%, PT is 12.2, INR 1.04, PTT is 30.1. His sodium 143, potassium 3.8, chloride 106, carbon dioxide 28, BUN 17, creatinine 1.4, glucose 96, total bilirubin 0.3, AST 17 , ALT 26, alkaline phosphatase 104. He had a CT scan performed of the abdomen and pelvis. The offic ial dictation states that he has continued worsening small bowel obstruction secondary to small bowel containing supraumbilical ventral hernia. They did not comment on his x-ray bypass which is visible to me on the CT scan. He does have, I do concur that he likely has a small bowel obstruc tion due to his ventral hernia which is evident on CT imaging. Assessment And Plan: This is a 58-year-old male who comes in with a ventral hernia causing a small b owel obstruction. 1.IV fluid hydration. 2.NG tube decompression. 3.Continue medical management. 4.I have explained the risks, benefits, and alternatives of open ventral hernia repair and reduction of small bowel, possible small bowel resection and indicated procedures. The risks include bleeding , infection, damage to surrounding tissues, need for further operation and procedures; patient has st ated he refuses time at this institution and wants to go to [facility]. I have explained that he may not b e able to go to [facility] for the above-stated problem as he has indicated. However, he states that he re fuses surgery here and has reiterated the fact that he wants to go to [facility] to have all of his surgica l procedures as he does not have confidence that he will be able to survive an operation at the [facility]. I have reiterated the need for emergency surgery and have placed OR block in case he changes hi s mind. I spoke to the hospitalist, Dr. Muñoz, who will speak to the patient as well regarding the a phillip situation. She will reach out to [facility] to see if the transfer is possible. However, if it does not have it reiterated the need for surgery and the patient has refused surgery. Will follow along. JULIEN/JUANPABLO Voice ID: [id number] Report ID: [id number]
[2019-07-16] MEDS: NA CHLORIDE 0.9% 1,000 ML IV SCH ×2 (09:10→16:15)
[2019-07-16] MEDS: METRONIDAZOLE 500mg IVPB 500 MG/100 ML BAG IV SCH ×4 (09:16→23:19)
[2019-07-16] MEDS: HYDROMORPHONE HCL 1 MG/ML INJ IV PRN ×3 (09:18→23:19)
[2019-07-16] MEDS: Levofloxacin500mg IV 500 MG/100 ML BAG IV SCH (10:11)
[2019-07-16] MEDS ORDERED: PROPOFOL 200 MG/20 ML VIAL IV ONE (10:53)
[2019-07-16] MEDS ORDERED: LIDOCAINE 2% MPF 5 ML VIAL ONE (10:53)
[2019-07-16] MEDS ORDERED: ROCURONIUM 50 MG/5 ML VIAL IV ONE (10:53)
[2019-07-16] MEDS ORDERED: MIDAZOLAM HCL 2 MG/2 ML INJ ONE (11:49)
[2019-07-16] MEDS ORDERED: SUCCINYLCHOLINE 20 MG/ML (10 ML) IV ONE (12:02)
[2019-07-16] MEDS ORDERED: Phenylephrine HCl 10 MG/ML 1 ML VIAL ONE (12:42)
[2019-07-16] MEDS ORDERED: NS 0.9% VIAL 20 ML ONE (12:43)
[2019-07-16] MEDS ORDERED: NS 0.9% VIAL 10 ML ONE (12:54)
[2019-07-16] MEDS ORDERED: EPHEDRINE SULF 50 MG/ML VIAL ONE (12:54)
[2019-07-16] MEDS: NA CHLORIDE 0.9% 1,000 ML ONE ×2 (13:19→13:32)
[2019-07-16] MEDS ORDERED: GLYCOPYRROLATE 0.2 MG/ML SYR ONE (13:43)
[2019-07-16] MEDS ORDERED: LABETALOL 20 MG/4ML SYRINGE IV ONE (13:43)
[2019-07-16] MEDS ORDERED: NEOSTIGMINE 1 MG/ML -10 ML VIAL ONE (13:43)
--- NOTE | 2019-07-16 14:11 | P.OP ---
Preoperative diagnosis: Bowel Obstruction Primary procedure: Exploratory Laparotomy with adhesiolysis Secondary procedure: Primary Abdominal closure Anesthesia: GETA Estimated blood loss: <50cc Specimen: none Findings: Small Bowel obstruction due to ventral abdominal hernia Complications: None Drain(s): Nasogastric, Urinary catheter Transferred to: Recovery Room Condition: Good
[2019-07-16] MEDS ORDERED: PROMETHAZINE 25 MG/ML VIAL ONE (14:22)
[2019-07-16] MEDS: HYDROMORPHONE HCL 1 MG/ML INJ ONE ×2 (14:23→15:04)
[2019-07-16] MEDS: MIDAZOLAM HCL 2 MG/2 ML INJ ONE ×2 (14:26→14:31)
[2019-07-16] MEDS: ENOXAPARIN 30 MG/0.3 ML SQ SCH (15:37)
[2019-07-16] MEDS ORDERED: INFLUENZA VACCINE (for 3y+) 0.5 ML DOSE IMVAC ONE (17:00)
[2019-07-16] MEDS ORDERED: HYDRALAZINE HCL 20 MG/ML VIAL IV ONE (19:00)
--- NOTE | 2019-07-16 20:46 | OP ---
Date of Procedure: 07/16/2019 Surgeon: Den Hahn MD, Preoperative Diagnosis: Bowel obstruction. Postoperative Diagnosis: Bowel obstruction. Procedure Performed: 1.Exploratory laparotomy with adhesiolysis. 2.Primary abdominal closure. Anesthesia: General endotracheal. Estimated Blood Loss: Less than 2 mL. Specimen: None. Findings: Small bowel obstruction due to ventral abdominal wall hernia. Complications: None. Drains: Nasogastric urinary catheter. Disposition: Transferred to recovery room in good condition. Procedure In Detail: After informed consent was obtained, the patient was brought to the operating r oom, prepped and draped in the usual sterile fashion. After adequate anesthesia was achieved, a midl ine laparotomy incision was made down through subcutaneous tissues with electric with a 10-blade scal pel. I then entered the abdomen on the superior aspect far away from the known ventral abdominal her korey into the peritoneum safely at this point and a large amount of murky colored fluid was encountere d immediately. This was opened in its entirety and the ventral hernia was then grasped, elevated, an d slightly opened on the superior and inferior aspects of the fascia to allow for reduction of the sm all bowel. I then opened the incision through the upper midline incision to expose this area. I ran the majority of the intestine, but I did not do a complete running of the small bowel, as the area o f obstruction was obvious at this point with the transition visualized at the hernia. After this was reduced, I did an adhesiolysis circumferentially to remove much of the bowel which was adhesed to th e anterior abdominal wall along with the significant amount of the omentum. I then grasped the fasci a, which was found to be quite wide and lateral, but brought to the midline at this point and irrigat ed the abdomen multiple times with saline until completely clear. Hemostasis was achieved easily wit h electrocautery. I then reapproximated the fascia and closed it with a running #1 looped PDS in a r unning fashion with good approximation of tissues. The skin was then copiously irrigated and closed with interrupted ishmael. Patient tolerated the procedure well without evidence of complication and transferred to PACU in good condition. All counts were correct at the end of the case. JULIEN/JUANPABLO Voice ID: [id number] Report ID: [id number]
[2019-07-16 20:48] LABS: Urine Appearance CLEAR; Urine Bilirubin NEGATIVE (NEG); Urine Blood NEGATIVE (NEG); Urine Color YELLOW; Urine Glucose NEGATIVE (NEG); Urine Protein TRACE (NEG); Urine Specific Gravity >=1.030 (1.005-1.030); Urine Urobilinogen 0.2 mg/dL (0.2-1.0)
[2019-07-16 20:49] LABS: Urine Microscopic Reflex ORDER UMIC
[2019-07-16 20:50] LABS: Urine Bacteria <20 /HPF (NONE SEEN); Urine Culture Reflex Order NOT NEEDED; Urine RBC NONE SEEN /HPF (NONE SEEN)
[2019-07-16] MEDS: ATORVASTATIN 40 MG TAB PO SCH (21:00)
[2019-07-16] MEDS ORDERED: METOPROLOL TAR 50 MG TAB PO SCH (21:00)
[2019-07-16] MEDS ORDERED: FENTANYL CITR 100 MCG/2 ML IV ONE (21:12)
[2019-07-16] MEDS: METOPROLOL TARTRATE 5 MG/5 ML INJ IV SCH (22:03)
[2019-07-17] MEDS: HYDRALAZINE HCL 20 MG/ML VIAL IV PRN (00:12)
[2019-07-17] MEDS: METOPROLOL TARTRATE 5 MG/5 ML INJ IV SCH ×6 (02:03→21:42)
[2019-07-17] MEDS: NA CHLORIDE 0.9% 1,000 ML IV SCH ×4 (03:31→22:00)
[2019-07-17] MEDS: HYDROMORPHONE HCL 1 MG/ML INJ IV PRN ×5 (03:45→20:56)
[2019-07-17 04:59] LABS: Absolute Lymphocytes (CBC) 0.8 K/uL (0.7-4.9); Basophils % 0.1 % (0-1.3); Hematocrit 38.8 % (39.6-49.0); Lymphocytes % 8.7 % (15.3-44.8); MPV 10.3 fL (7.6-11.3); RBC Red Blood Cell Count 3.97 M/uL (4.33-5.43)
[2019-07-17 05:00] LABS: Protime INR 1.22
[2019-07-17 05:11] LABS: Albumin 3.2 g/dL (3.4-5.0); Bilirubin Total 0.5 mg/dL (0.2-1.0); Magnesium 1.7 mg/dL (1.8-2.4); Phosphorus 2.5 mg/dL (2.5-4.9); Potassium 4.3 mmol/L (3.5-5.1); Protein, Total 6.4 g/dL (6.4-8.2)
[2019-07-17] MEDS: Levofloxacin500mg IV 500 MG/100 ML BAG IV SCH (05:31)
[2019-07-17] MEDS: METRONIDAZOLE 500mg IVPB 500 MG/100 ML BAG IV SCH ×3 (05:32→17:21)
[2019-07-17 06:01] VITALS: BMI 26.9
[2019-07-17] MEDS ORDERED: MAGNESIUM SULFATE 1 gm IVPB 1 GM/100 ML BAG IV ONE (06:02)
[2019-07-17] MEDS: ENOXAPARIN 30 MG/0.3 ML SQ SCH (09:28)
--- NOTE | 2019-07-17 11:07 | P.PN ---
Subjective Date of Service: 07/17/19 Subjective: Improving (Patient pain much improved. no acute events last evening.) Review of Systems General: Unremarkable Eyes: Pain, Unremarkable ENT: Unremarkable Respiratory: Unremarkable Cardiovascular: Unremarkable Gastrointestinal: Abdominal Pain Genitourinary: Unremarkable Musculoskeletal: Unremarkable Integumentary: Unremarkable Neurological: Unremarkable Lymphatics: Unremarkable Physical Examination - Vital Signs Temperature: 99.4 F Blood Pressure: 137/105 Pulse: 98 Respirations: 25 Pulse Ox (%): 96 - Physical Exam General: Alert, In no apparent distress, Cooperative Gastrointestinal: Other (soft, mild appropriate TTP, ND, incision clean and dry. ishmael in place) Assessment And Plan - Current Problems (Diagnosis) (1) Incarcerated hernia Current Visit: No Status: Acute Plan: POD #1 s/p exploratory laparotomy for incarcerated ventral hernia with primary repair - continue pain regime - continue medical management with IV fluids - Clamp trial for NG tube today, DC NG tube and start sips of clears if does well with clamp trial - ambulate with assist - keep abdominal binder - social work program coordinator consult for medicaid - daily dressing changes
--- NOTE | 2019-07-17 12:10 | P.PN ---
Subjective Date of Service: 07/17/19 Subjective: Improving patient seen and examined at [facility]. Charte reviewed and case discussed with nursing staff and Dr. Hahn. Currently sitting up in chair, NGT in right nare Complaining of abdominal pain No acute events noted overnight. Hemodynamically stable. Review of Systems 10-point ROS is otherwise unremarkable Physical Examination - Vital Signs Temperature: 99.4 F Blood Pressure: 137/105 Pulse: 98 Respirations: 25 Pulse Ox (%): 96 - Physical Exam General: Alert, Oriented x3, Mild distress, Moderate distress HEENT: Atraumatic, PERRLA, EOMI Neck: Supple, JVD not distended Respiratory: Clear to auscultation bilaterally, Normal air movement Cardiovascular: Regular rate/rhythm, Normal S1 S2 Gastrointestinal: Other (Incision site clean,dry and intact;), Absent bowel sounds, Tenderness Musculoskeletal: No tenderness Integumentary: No rashes Neurological: Normal speech, Normal tone, Normal affect Lymphatics: No axilla or inguinal lymphadenopathy Assessment And Plan - Current Problems (Diagnosis) (1) Incarcerated hernia Current Visit: No Status: Acute Plan: POD #1 s/p exploratory laparotomy for incarcerated ventral hernia with primary repair - continue pain control - IV fluids - NGT in place; follow recommendations per Surgery - keep abdominal binder - protective services social worker consult for medicaid - daily dressing changes -Keep NPO (2) Ventral hernia Current Visit: Yes Status: Acute Qualifiers: Obstruction and gangrene presence: with obstruction but without gangrene Qualified Code(s): K43.6 - Other and unspecified ventral hernia with obstruction , without gangrene (3) Hypertension Current Visit: Yes Status: Acute (4) History of aortic aneurysm Current Visit: Yes Status: Acute (5) History of vascular infections Current Visit: Yes Status: Acute (6) HLD (hyperlipidemia) Current Visit: No Status: Chronic Qualifiers: Hyperlipidemia type: unspecified Qualified Code(s): E78.5 - Hyperlipidemia , unspecified - Plan Significant for the aortic aneurysm, hypertension, multiple vascular infections , high cholesterol, hernia, and ventral hernia as described.
[2019-07-17] MEDS: ATORVASTATIN 40 MG TAB PO SCH (20:56)
[2019-07-18] MEDS: METRONIDAZOLE 500mg IVPB 500 MG/100 ML BAG IV SCH ×4 (00:02→17:23)
[2019-07-18] MEDS: HYDROMORPHONE HCL 1 MG/ML INJ IV PRN ×6 (01:21→20:52)
[2019-07-18] MEDS: METOPROLOL TARTRATE 5 MG/5 ML INJ IV SCH ×4 (02:13→14:57)
[2019-07-18] MEDS: NA CHLORIDE 0.9% 1,000 ML IV SCH (02:13)
[2019-07-18] MEDS: Levofloxacin500mg IV 500 MG/100 ML BAG IV SCH (05:30)
[2019-07-18] MEDS: ENOXAPARIN 30 MG/0.3 ML SQ SCH (08:32)
--- NOTE | 2019-07-18 09:54 | P.PN ---
Subjective Date of Service: 07/18/19 Subjective: Improving patient seen and examined at [facility]. Charte reviewed and case discussed with nursing staff and Dr. Hahn. Currently sitting up in chair, NGT out Abdominal pain improved tolerating CLD No acute events noted overnight. Hemodynamically stable. Review of Systems 10-point ROS is otherwise unremarkable Physical Examination - Vital Signs Temperature: 98.2 F Blood Pressure: 148/104 Pulse: 97 Respirations: 20 Pulse Ox (%): 98 - Physical Exam General: Alert, In no apparent distress, Oriented x3 HEENT: Atraumatic, PERRLA, EOMI Neck: Supple, JVD not distended Respiratory: Clear to auscultation bilaterally, Normal air movement Cardiovascular: Regular rate/rhythm, Normal S1 S2 Gastrointestinal: Normal bowel sounds, No tenderness Musculoskeletal: No tenderness Integumentary: No rashes Neurological: Normal speech, Normal tone, Normal affect Assessment And Plan - Current Problems (Diagnosis) (1) Incarcerated hernia Current Visit: No Status: Acute Plan: POD #1 s/p exploratory laparotomy for incarcerated ventral hernia with primary repair - continue pain control - IV fluids - NGT removed, tolerating well. - keep abdominal binder - social media campaign manager consult for medicaid - daily dressing changes -CLD, advance per surgery (2) Ventral hernia Current Visit: Yes Status: Acute Qualifiers: Obstruction and gangrene presence: with obstruction but without gangrene Qualified Code(s): K43.6 - Other and unspecified ventral hernia with obstruction , without gangrene (3) Hypertension Current Visit: Yes Status: Acute (4) History of aortic aneurysm Current Visit: Yes Status: Acute (5) History of vascular infections Current Visit: Yes Status: Acute (6) HLD (hyperlipidemia) Current Visit: No Status: Chronic Qualifiers: Hyperlipidemia type: unspecified Qualified Code(s): E78.5 - Hyperlipidemia , unspecified - Plan Disposition: Pending tolerating diet and symptomatic improvement.
--- NOTE | 2019-07-18 10:18 | P.PN ---
Subjective Date of Service: 07/18/19 Subjective: Improving (Patient tolerating clears, no acute events, no nausea. pain well controlled) Physical Examination - Vital Signs Temperature: 98.2 F Blood Pressure: 148/104 Pulse: 97 Respirations: 20 Pulse Ox (%): 98 - Physical Exam General: Alert, In no apparent distress, Cooperative HEENT: Mucous membr. moist/pink Respiratory: Clear to auscultation bilaterally Gastrointestinal: Other (soft, mild appropriate TTP, ND, incision clean and dry) Assessment And Plan - Current Problems (Diagnosis) (1) Incarcerated hernia Current Visit: No Status: Acute Plan: POD #1 s/p exploratory laparotomy for incarcerated ventral hernia with primary repair - continue pain regime - continue medical management with IV fluids - clear liquids today - ambulate with assist - keep abdominal binder - social security assessor consult for medicaid - daily dressing changes - EUGENIE montemayor
[2019-07-18] MEDS: HYDROCODONE/APAP 5/325 MG TAB PO PRN ×2 (15:32→22:39)
[2019-07-18] MEDS: ATORVASTATIN 40 MG TAB PO SCH (20:51)
[2019-07-18] MEDS: METOPROLOL TAR 50 MG TAB PO SCH (20:52)
[2019-07-18] MEDS: HYDRALAZINE HCL 20 MG/ML VIAL IV PRN (22:39)
[2019-07-19] MEDS: METRONIDAZOLE 500mg IVPB 500 MG/100 ML BAG IV SCH ×3 (00:08→12:07)
[2019-07-19] MEDS: HYDROMORPHONE HCL 1 MG/ML INJ IV PRN ×2 (02:02→05:51)
[2019-07-19] MEDS: Levofloxacin500mg IV 500 MG/100 ML BAG IV SCH (05:50)
[2019-07-19] MEDS: HYDRALAZINE HCL 20 MG/ML VIAL IV PRN (05:51)
[2019-07-19] MEDS: ENOXAPARIN 30 MG/0.3 ML SQ SCH (08:26)
[2019-07-19] MEDS: METOPROLOL TAR 50 MG TAB PO SCH (08:27)
--- NOTE | 2019-07-19 09:22 | P.PN ---
Subjective Date of Service: 07/19/19 Subjective: Improving patient seen and examined at [facility]. Charte reviewed and case discussed with nursing staff and Dr. Hahn. Currently sitting up in chair, NGT out Abdominal pain improved, improved with medications Passing gas, no BM yet tolerating FLD, ambulating without concerns. No acute events noted overnight. Hemodynamically stable. Review of Systems 10-point ROS is otherwise unremarkable Physical Examination - Vital Signs Temperature: 98.2 F Blood Pressure: 147/95 Pulse: 91 Respirations: 15 Pulse Ox (%): 97 - Physical Exam General: Alert, In no apparent distress, Oriented x3 HEENT: Atraumatic, PERRLA, EOMI Neck: Supple, JVD not distended Respiratory: Clear to auscultation bilaterally, Normal air movement Cardiovascular: Regular rate/rhythm, Normal S1 S2 Gastrointestinal: Other (incision site, clear/dry/intact), Tenderness Musculoskeletal: No tenderness Integumentary: No rashes Neurological: Normal speech, Normal tone, Normal affect Lymphatics: No axilla or inguinal lymphadenopathy Assessment And Plan - Current Problems (Diagnosis) (1) Incarcerated hernia Current Visit: No Status: Acute Plan: POD #3 s/p exploratory laparotomy for incarcerated ventral hernia with primary repair - continue pain control - NGT removed, tolerating well. - keep abdominal binder - social staff worker consult for medicaid - daily dressing changes -FLD, advance per surgery (2) Ventral hernia Current Visit: Yes Status: Acute Qualifiers: Obstruction and gangrene presence: with obstruction but without gangrene Qualified Code(s): K43.6 - Other and unspecified ventral hernia with obstruction , without gangrene (3) Hypertension Current Visit: No Status: Chronic Plan: Continue PO metoprolol, now that patient is tolerating PO. Qualifiers: Hypertension type: essential hypertension Qualified Code(s): I10 - Essential (primary) hypertension (4) History of aortic aneurysm Current Visit: No Status: Chronic (5) History of vascular infections Current Visit: No Status: Chronic (6) HLD (hyperlipidemia) Current Visit: No Status: Chronic Qualifiers: Hyperlipidemia type: unspecified Qualified Code(s): E78.5 - Hyperlipidemia , unspecified - Plan Disposition: Pending tolerating diet and symptomatic improvement.
[2019-07-19 10:38] VITALS: O2SAT 97
[2019-07-19] MEDS: HYDROCODONE/APAP 5/325 MG TAB PO PRN (10:48)
--- NOTE | 2019-07-19 12:30 | RAD REPORT ---
EXAM DESCRIPTION: CT - Abdomen Pelvis W Contrast - 07/16/2019 4:39 am CLINICAL HISTORY: Possible hernia incarceration;Abd pain COMPARISON: March 07, 2019. TECHNIQUE: CT ABDOMEN PELVIS WITH IV CONTRAST on 07/16/2019 3:01 AM CDT This exam was performed according to our departmental dose-optimization program, which includes autom ated exposure control, adjustment of the mA and/or kV according to patient size and/or use of iterati ve reconstruction technique. FINDINGS: Lower lungs are clear. Abdomen: The liver is normal in appearance. There is no biliary dilatation. The gallbladder is normal in appearance. There is a small hiatal hernia. The pancreas and spleen are normal in appearance. Adr enal glands are normal. There is mild bilateral hydronephrosis. Left knee is mildly atrophic. Abdominal aorta is normal in course and caliber without aneurysm. There is no free air. There is no r etroperitoneal adenopathy. Pelvis: There is a supraumbilical ventral hernia containing multiple loops small bowel which are dila sabrina with associated edema. Slightly more inferiorly is a second small bowel containing hernia with de compressed bowel within. Urinary bladder is unremarkable. There is no free fluid. Appendix is normal. Skeleton: There are no acute osseous findings. No suspicious bony lesions. IMPRESSION: Continued, worsening small bowel obstruction secondary to a small bowel containing supra umbilical ventral hernia. Electronically signed by: Ernesto Bello MD 07/16/2019 4:32 AM CDT Due to temporary technical issues with the PACS/Fluency reporting system, reports are being signed by the in house radiologist as a courtesy to ensure prompt reporting. The interpreting radiologist is f ully responsible for the content of the report.
--- NOTE | 2019-07-19 15:37 | P.DS ---
Admission Date: 07/16/19 Discharge Date: 07/19/19 Primary Care Provider: None Disposition: ROUTINE DISCHARGE Discharge Condition: GOOD Reason for Admission: Abdominal pain, nausea and vomiting Consultations: Dr. Hahn, General surgery Procedures: Exploratory laparotomy - Problems (1) Incarcerated hernia Current Visit: No Status: Acute (2) Ventral hernia Current Visit: Yes Status: Acute Qualifiers: Obstruction and gangrene presence: with obstruction but without gangrene Qualified Code(s): K43.6 - Other and unspecified ventral hernia with obstruction , without gangrene (3) Hypertension Current Visit: No Status: Chronic Qualifiers: Hypertension type: essential hypertension Qualified Code(s): I10 - Essential (primary) hypertension (4) History of aortic aneurysm Current Visit: No Status: Chronic (5) History of vascular infections Current Visit: No Status: Chronic (6) HLD (hyperlipidemia) Current Visit: No Status: Chronic Qualifiers: Hyperlipidemia type: unspecified Qualified Code(s): E78.5 - Hyperlipidemia , unspecified Brief History of Present Illness: A 58-year-old male who came in the hospital with recurrent ventral abdominal hernia causing partial small wall obstruction. He came in with complaints of abdominal pain, distention, nausea and vomiting. He has had being previous episodes like this in the past. He normal does go to [facility] for this problem, but this time his friend had brought him here. Initially, advance for to [place] was tried and we were unsuccessful as hospital did not have but still. We were not sure when the bed to become available. General surgery was consulted here, who recommended fairly immediate surgery for the hernia repair. 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 He has had multiple hospitalizations and had his hernia reduced. After discussion with the patient, he agrees to have his surgery here. He underwent explode laparotomy for incarcerated hernia and primary repair. He was monitored in the ICU special events assistant for 1 night and he did well. He was provided symptomatic and supportive care. He did have NG tube placed prior to surgery, which was removed once his symptoms improved after surgery. He was started on a clear liquid diet, advanced as tolerated to GI soft. Prior to discharge, he was ambulating without concerns, pain was controlled and was tolerating a GI soft diet. He otherwise remained hemodynamically stable throughout the stay. His diagnoses and treatment plan was explained to him, all questions were answered and he lies understanding. He was then cleared for discharge by general surgery. He was discharged home from here in a safe and stable manner. Vital Signs/Physical Exam: Temp Pulse Resp BP Pulse Ox 98.0 F 86 15 150/96 H 97 07/19/19 12:00 07/19/19 12:00 07/19/19 12:00 07/19/19 12:00 07/19/19 12:00 General: Alert, In no apparent distress HEENT: Atraumatic, PERRLA, EOMI Neck: Supple, JVD not distended Respiratory: Clear to auscultation bilaterally, Normal air movement Cardiovascular: Regular rate/rhythm, Normal S1 S2 Gastrointestinal: Normal bowel sounds, No tenderness, Other (Incision site clean , dry and intact. Stitches in place ) Musculoskeletal: No tenderness Integumentary: No rashes Neurological: Normal speech, Normal tone, Normal affect Lymphatics: No axilla or inguinal lymphadenopathy Laboratory Data at Discharge: WBC 9.7 K/uL (4.3-10.9) 07/17/19 04:34 Hgb 12.8 g/dL (13.6-17.9) L 07/17/19 04:34 Hct 38.8 % (39.6-49.0) L 07/17/19 04:34 Plt Count 170 K/uL (152-406) 07/17/19 04:34 PT 14.3 SECONDS (9.5-12.5) H 07/17/19 04:34 INR 1.22 07/17/19 04:34 APTT 28.3 SECONDS (24.3-36.9) 07/17/19 04:34 Sodium 144 mmol/L (136-145) 07/17/19 04:34 Potassium 4.3 mmol/L (3.5-5.1) 07/17/19 04:34 BUN 14 mg/dL (7-18) 07/17/19 04:34 Creatinine 1.35 mg/dL (0.55-1.3) H 07/17/19 04:34 Glucose 122 mg/dL (74-106) H 07/17/19 04:34 Phosphorus 2.5 mg/dL (2.5-4.9) 07/17/19 04:34 Magnesium 1.9 mg/dL (1.8-2.4) 07/18/19 05:13 Total Bilirubin 0.5 mg/dL (0.2-1.0) 07/17/19 04:34 AST 17 U/L (15-37) 07/17/19 04:34 ALT 17 U/L (12-78) 07/17/19 04:34 Alkaline Phosphatase 79 U/L (45-117) 07/17/19 04:34 Lipase 48 U/L (73-393) L 07/17/19 04:34 Home Medications: Atorvastatin Calcium [Lipitor] 40 mg PO BEDTIME 03/07/19 Metoprolol Tartrate 50 mg PO BID 03/07/19 levoFLOXacin [Levaquin] 500 mg PO DAILY #7 tab 07/19/19 metroNIDAZOLE [Flagyl] 500 mg PO Q8H #21 tablet 07/19/19 New Medications: levoFLOXacin [Levaquin] 500 mg PO DAILY #7 tab metroNIDAZOLE [Flagyl] 500 mg PO Q8H #21 tablet Patient Discharge Instructions: Please follow up with general surgery in 1 week. Please return to the emergency room for worsening symptoms. Diet: AHA Activity: Ad miguel ángel Followup: Den Hahn MD [ACTIVE - CAN ADMIT] - Time spent managing pt's care (in minutes): 55
[2019-07-19] MEDS ORDERED: PANTOPRAZOLE 40MG TABLET PO SCH (16:30)
[2019-07-19 17:03] VITALS: BP 150/78
[2019-07-19 17:21] VITALS: TEMP 99.5
--- NOTE | 2019-08-02 08:20 | P.HP ---
Certification for Inpatient Patient admitted to: Inpatient With expected LOS: >2 Midnights Patient will require the following post-hospital care: None Practitioner: I am a practitioner with admitting privileges, knowledge of patient current condition, hospital course, and medical plan of care. Services: Services provided to patient in accordance with Admission requirements found in Title 42 Section 412.3 of the Code of Federal Regulations Patient History Date of Service: 07/16/19 Reason for admission: Abdominal pain, nausea and vomiting History of Present Illness: A 58-year-old male who came in the hospital with recurrent ventral abdominal hernia causing partial small bowel obstruction. He came in with complaints of abdominal pain, distention, nausea and vomiting. He has had being previous episodes like this in the past. He normally goes go to [facility] for this problem, but this time his friend had brought him here. Initially, transferred to [place] was attempted, and we were unsuccessful as hospital did not have beds. We were not sure when the bed became available. General surgery was consulted there who recommended fairly immediate surgery for the hernia repair. 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 He has had multiple hospitalizations and he had his hernia reduced. At this time, patient will be admitted to the hospital for further evaluation. 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 it has had to be decompressed with surg x4 Psychosocial/ Personal History: Patient is . He has 1 child. He does not work. - Family History Father Medical History: Heart disease, Diabetes, Cancer Notes: lung cancer, mesatheleoma Mother Medical History: Heart disease - Social History Smoking Status: Former smoker Alcohol use: No CD- Drugs: No Caffeine use: No Place of Residence: Homeless Review of Systems 10-point ROS is otherwise unremarkable Physical Examination - Vital Signs Temperature: 99.5 F Blood Pressure: 150/78 Pulse: 88 Respirations: 16 Pulse Ox (%): 96 - Physical Exam General: Alert, In no apparent distress, Oriented x3 HEENT: Atraumatic, PERRLA, Mucous membr. moist/pink, EOMI, Sclerae nonicteric Neck: Supple, 2+ carotid pulse no bruit, No LAD, Without JVD or thyroid abnormality Respiratory: Clear to auscultation bilaterally, Normal air movement Cardiovascular: Regular rate/rhythm, Normal S1 S2, No murmurs Gastrointestinal: Normal bowel sounds, Soft and benign, Non-distended, No tenderness Musculoskeletal: No tenderness Integumentary: No rashes Neurological: Normal gait, Normal speech, Normal strength at 5/5 x4 extr, Normal tone, Sensation intact, Cranial nerves 3-12 intact, Normal affect Lymphatics: No axilla or inguinal lymphadenopathy Assessment & Plan - Problems (Diagnosis) (1) Abdominal pain Status: Acute Qualifiers: Abdominal location: generalized Qualified Code(s): R10.84 - Generalized abdominal pain (2) Incarcerated hernia Status: Acute (3) Ventral hernia Status: Acute Qualifiers: Obstruction and gangrene presence: with obstruction but without gangrene Qualified Code(s): K43.6 - Other and unspecified ventral hernia with obstruction , without gangrene (4) HLD (hyperlipidemia) Status: Chronic Qualifiers: Hyperlipidemia type: unspecified Qualified Code(s): E78.5 - Hyperlipidemia , unspecified (5) History of aortic aneurysm Status: Chronic (6) History of vascular infections Status: Chronic (7) Hypertension Status: Chronic Qualifiers: Hypertension type: essential hypertension Qualified Code(s): I10 - Essential (primary) hypertension - Plan PLAN: 1. IVFs 2. Pain control 3. IV antibiotics 4. Monitor labs 5. Surgery consultation 6. GI/DVT prophylaxis Discharge Plan: Home Plan to discharge in: Greater than 2 days - Advance Directives Does patient have a Living Will: No Does patient have a Durable POA for Healthcare: No - Code Status/Comfort Care Code Status Assessed: Yes Code Status: Full Code Critical Care: No Time Spent Managing PTS Care (In Minutes): 40
== END 2019-07-19 17:37 | disposition home or self-care (01) | DRG 337 ==
LOC: ER 01:36 → ERHOLD 05:44 → 4TH 06:10 → 3RD-ICU 15:15 → 4TH 07-17 11:12
PROVIDERS: ADMIT Hospitalist; ATTEND Hospitalist
PROC: 0DN80ZZ Release Small Intestine, Open Approach (ICD-10-PCS; 2019-07-16)
PROC: 0WQF0ZZ Repair Abdominal Wall, Open Approach (ICD-10-PCS; principal; 2019-07-16 11:45)
DX: K43.0 Incisional hernia with obstruction, without gangrene (principal); E78.5 Hyperlipidemia, unspecified; I10 Essential (primary) hypertension
CPT/HCPCS: 36415; 74177; 80048; 80053; 80076; 81003; 81015; 83690; 83735; 84100; 85025; 85610; 85730; 96361; 96365; 96375; 97110; 97116; 97161; 97530; 99285; J0330; J0360; J0696; J1170; J1650; J2250; J2270; J2370; J2405; J2550; J2704; J2710; J3010; J3475; J7030; Q9967